=== PATIENT | male | born 1990 | race Caucasian/White ===

== ENCOUNTER 2017-05-26 14:03 | Inpatient (IN) | payer MEDICAID, OTHER ==
[2017-05-26 16:04] LABS: VENOUS BLOOD GAS BASE EXCESS 2.5 mmol/L (0.0-2.0); VENOUS BLOOD GAS PCO2 48 mmHg (40-60); VENOUS BLOOD GAS PO2 24 mm/Hg (30-55); VENOUS BLOOD PH 7.38 (7.32-7.43)
[2017-05-26 16:06] LABS: BASO % 0.2 % (0.0-2.0); MEAN PLATELET VOLUME 8.8 fL (7.2-11.7); RBC 4.89 Mil/uL (4.40-5.90)
[2017-05-26] MEDS ORDERED: Vancomycin 1 GM 1 GM/250 ML BAG IVPB STA (16:06)
[2017-05-26] MEDS ORDERED: Sodium Chloride 0.9% 1,000 ML IV ONE (16:06)
--- NOTE | 2017-05-26 16:06 | C.PDOC ---
History Of Present Illness 27 year old male presents to the ED for evaluation of redness, pain and swelling to his left calf after he got a tattoo around the area 2 weeks ago. Patient states he developed a small opening with purulent drainage around the area 10 days ago and then developed another one 4 days ago. Patient denies fever , chills, direct trauma/injury to the area, and extremity numbness/weakness. Time Seen by Provider: 05/26/17 15:30 Chief Complaint (Nursing): Lower Extremity Problem/Injury History Per: Patient History/Exam Limitations: no limitations Onset/Duration Of Symptoms: Days Current Symptoms Are (Timing): Still Present Additional History Per: Patient Past Medical History Reviewed: Historical Data, Nursing Documentation, Vital Signs Vital Signs: Last Vital Signs Temp 100.9 F H 05/26/17 14:25 Pulse 129 H 05/26/17 14:25 Resp 20 05/26/17 14:25 BP 131/81 05/26/17 14:25 Pulse Ox 99 05/26/17 18:29 - Medical History PMH: No Chronic Diseases Surgical History: No Surg Hx Family History: States: Unknown Family Hx - Social History Hx Alcohol Use: Yes Hx Substance Use: Yes - Immunization History Hx Tetanus Toxoid Vaccination: No Hx Influenza Vaccination: No Hx Pneumococcal Vaccination: No Review Of Systems Constitutional: Negative for: Fever, Chills Skin: Positive for: Other (redness, pain and swelling to left calf s/p tattoo ) Physical Exam - Physical Exam Appears: Non-toxic, No Acute Distress Skin: Warm, Dry, Other (one dime-sized open area with purulent discharge to medial aspect of left calf. one 1cm open area to mid-lateral aspect of left calf ; no purulent drainage. Erythema extending about 3 inches proximal to the knee ) Cardiovascular: Rhythm Regular (tachycardic) Respiratory: No Decreased Breath Sounds, No Wheezing Gastrointestinal/Abdominal: Soft, No Tenderness Extremity: Tenderness, Capillary Refill (less than 2 seconds ), Swelling (left lower extremity swollen wiht pitting edema, soft, no signs of compartment syndrome. ), Other (full ROM in left knee with pain ) Pulses: Left Dorsalis Pedis: Normal, Right Dorsalis Pedis: Normal Neurological/Psych: Oriented x3, Normal Speech, Normal Cognition, Normal Motor, Normal Sensation ED Course And Treatment - Laboratory Results Result Diagrams: 05/26/17 15:58 05/26/17 15:58 O2 Sat by Pulse Oximetry: 99 (on RA) Pulse Ox Interpretation: Normal Medical Decision Making Medical Decision Making: Progress: Bloodwork and Urinalysis ordered and reviewed. pt initially assessed for pre septic workup- lactate normal. Tylenol PO, Vancomycin IVP, and IV Fluids administered. discussed with Dr Sabra Morocho, will admit to his service. Disposition Discussed With Dr.: Jacobo Morocho Doctor Will See Patient In The: Hospital - Disposition Disposition: HOSPITALIZED Disposition Time: 17:29 Condition: STABLE Forms: [employer] (Hungarian) - Clinical Impression Clinical Impression: Cellulitis of left lower limb - PA / LOFTER / Resident Statement MD/DO has reviewed & agrees with the documentation as recorded. - Scribe Statement The provider has reviewed the documentation as recorded by the Scribe (Lesia Morocho) All medical record entries made by the Scribe were at my direction and personally dictated by me. I have reviewed the chart and agree that the record accurately reflects my personal performance of the history, physical exam, medical decision making, and the department course for this patient. I have also personally directed, reviewed, and agree with the discharge instructions and disposition.
[2017-05-26 16:12] LABS: ALB/GLOB RATIO 1.2 (1.0-2.1); ALBUMIN 4.4 g/dL (3.5-5.0); ALT/SGPT 23 U/L (21-72); AST/SGOT 17 U/L (17-59); BLOOD UREA NITROGEN 10 mg/dL (9-20); CALCIUM 9.8 mg/dl (8.6-10.4); GFR AFRICAN-AMERICAN > 60; GFR NON-AFRICAN AMERICAN > 60
[2017-05-26] MEDS ORDERED: Sodium Chloride 0.9% 1,000 ML ONE (16:12)
[2017-05-26 16:27] LABS: URINE BACTERIA RARE (<OCC); URINE BILIRUBIN NEGATIVE (NEGATIVE); URINE BLOOD TRACE (NEGATIVE); URINE CLARITY Hazy (Clear); URINE COLOR Amber (YELLOW); URINE GLUCOSE (UA) 1+ mg/dL (Normal); URINE HYALINE CAST 0-2 /lpf (0-2); URINE LEUKOCYTE ESTERASE NEG Leu/uL (Negative); URINE NITRATE NEGATIVE (NEGATIVE); URINE PROTEIN 1+ mg/dL (NEGATIVE)
[2017-05-26 16:30] LABS: EOS # 0.3 K/uL (0.0-0.7); EOS % 1.2 % (0.0-4.0); HEMOGLOBIN 16.5 g/dL (12.0-18.0); LYMPH # 1.1 K/uL (1.0-4.3); LYMPH % 5.4 % (20.0-40.0); MEAN CELL VOLUME 95.7 fL (80.0-94.0); MEAN CORPUSCULAR HEMOGLOBIN 33.8 pg (27.0-31.0); MEAN CORPUSCULAR HGB CONC 35.3 g/dL (33.0-37.0); MONO # 1.5 K/uL (0.0-0.8); MONO % 7.2 % (0.0-10.0); NEUT # 18.2 K/uL (1.8-7.0); NRBC % 0.4 % (0.0-2.0); PLATELET COUNT 175 K/uL (130-400); WHITE BLOOD COUNT 21.2 K/uL (4.8-10.8)
[2017-05-26] MEDS ORDERED: Vancomycin 1 gm/NS 200 ml 1 GM/200 ML BAG IVPB ONE (16:30)
[2017-05-26] MEDS ORDERED: Piperacill/Tazo 4.5gm in Dex 4.5 GM/100 ML BAG IVPB STA (17:15)
[2017-05-26 17:48] LABS: EOSINOPHIL 1 % (0-4); MONOCYTE 7 % (0-10); NEUTROPHIL 88 % (50-75); REACTIVE LYMPHOCYTES 4 % (0-0); TOTAL CELLS COUNTED 100
[2017-05-26 17:49] LABS: PLATELET ESTIMATE NORMAL (NORMAL)
[2017-05-26 18:01] LABS: LYMPHOCYTE 0 % (20-40)
--- NOTE | 2017-05-26 18:22 | CP.PCM.HP ---
<Martin Cochran - Last Filed: 05/26/17 19:25> Present on Admission - Present on Admission Any Indicators Present on Admission: No Review of Systems - Constitutional Constitutional: Fever. absent: Weakness - EENT Eyes: absent: Change in Vision Nose/Mouth/Throat: absent: Mouth Lesions, Mouth Pain, Odynophagia, Sore Throat - Cardiovascular Cardiovascular: absent: Chest Pain, Diaphoresis, Dyspnea - Gastrointestinal Gastrointestinal: absent: Abdominal Pain, Nausea, Vomiting - Genitourinary Genitourinary: absent: Dysuria Additional comments: dark urine output x1 episode - Musculoskeletal Musculoskeletal: absent: Numbness, Tingling - Integumentary Integumentary: As Per HPI, Skin Ulcer, Sores, Wounds Additional comments: LLE- erythema, purulent lesions - Neurological Neurological: absent: Dizziness, Numbness, Paresthesias, Syncope, Tingling, Weakness Past Patient History - Infectious Disease Hx of Infectious Diseases: None - Past Social History Smoking Status: Heavy Smoker > 10 Cigarettes Daily - PSYCHIATRIC Hx Substance Use: Yes - SURGICAL HISTORY Hx Surgeries: Yes Other/Comment: Brachial plexis left arm - ANESTHESIA Hx Anesthesia: Yes Hx Anesthesia Reactions: No Meds Allergies/Adverse Reactions: Allergies Allergy/AdvReac Type Severity Reaction Status Date / Time No Known Allergies Allergy Verified 05/26/17 14:30 Physical Exam - Constitutional Appears: No Acute Distress - Head Exam Head Exam: ATRAUMATIC, NORMOCEPHALIC - Eye Exam Eye Exam: EOMI, PERRL - ENT Exam ENT Exam: Mucous Membranes Moist - Respiratory Exam Respiratory Exam: Clear to Auscultation Bilateral, NORMAL BREATHING PATTERN. absent: Rales, Rhonchi, Wheezes - Cardiovascular Exam Cardiovascular Exam: REGULAR RHYTHM, +S1, +S2 - GI/Abdominal Exam GI & Abdominal Exam: Normal Bowel Sounds, Soft. absent: Guarding, Tenderness - Extremities Exam Additional comments: LLE is erythematous from knee to ankle. Patient is tender to palpation in this area. He has three open wounds in this area that have purulent drainage. He is able to move the knee and ankle joints through full ROM without difficulty. He is unable to bear weight on this leg secondary to pain. The tattoo is on the medial aspect of the lower leg and reads "NORTHSIDE" written vertically in the direction of knee to ankle. 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 This extremity is smaller and less developed that RUE. He is able to grasp with this hand but function/ utility is not equal to RUE. - Neurological Exam Neurological exam: Alert, CN II-XII Intact, Oriented x3 - Psychiatric Exam Psychiatric exam: Normal Affect, Normal Mood - Skin Skin Exam: Dry, Warm Results - Vital Signs Recent Vital Signs: Last Vital Signs Temp 100.9 F H 05/26/17 14:25 Pulse 129 H 05/26/17 14:25 Resp 20 05/26/17 14:25 BP 131/81 05/26/17 14:25 Pulse Ox 99 05/26/17 17:40 - Labs Result Diagrams: 05/26/17 15:58 05/26/17 15:58 Labs: Laboratory Results - last 24 hr 05/26/17 05/26/17 05/26/17 15:58 15:58 15:58 WBC 21.2 H RBC 4.89 Hgb 16.5 Hct 46.8 MCV 95.7 H MCH 33.8 H MCHC 35.3 RDW 12.0 Plt Count 175 MPV 8.8 Neut % (Auto) 86.0 H Lymph % (Auto) 5.4 L [place]ck[place] % (Auto) 7.2 Eos % (Auto) 1.2 Baso % (Auto) 0.2 Neut # (Auto) 18.2 H Lymph # (Auto) 1.1 Crockett # (Auto) 1.5 H Eos # (Auto) 0.3 Baso # (Auto) 0.0 Neutrophils % (Manual) 88 H Lymphocytes % (Manual) 0 L Reactive Lymphs % 4 H Monocytes % (Manual) 7 Eosinophils % (Manual) 1 Platelet Estimate Normal pO2 VBG pH VBG pCO2 VBG HCO3 VBG Total CO2 VBG O2 Sat (Calc) VBG Base Excess VBG Potassium Glucose Lactate Sodium 136 Potassium 3.8 Chloride 96 L Carbon Dioxide 28 Anion Gap 15 BUN 10 Creatinine 0.8 Est GFR ( Amer) > 60 Est GFR (Non-Af Amer) > 60 Random Glucose 89 Calcium 9.8 Total Bilirubin 1.8 H AST 17 ALT 23 Alkaline Phosphatase 56 C-React Prot High Sens > 15.00 H Total Protein 8.1 Albumin 4.4 Globulin 3.7 Albumin/Globulin Ratio 1.2 Venous Blood Potassium Urine Color Urine Clarity Urine pH Ur Specific [place] Urine Protein Urine Glucose (UA) Urine Ketones Urine Blood Urine Nitrate Urine Bilirubin Urine Urobilinogen Ur Leukocyte Esterase Urine WBC (Auto) Urine RBC (Auto) Urine Bacteria Hyaline Casts 05/26/17 05/26/17 16:00 16:21 WBC RBC Hgb Hct MCV MCH MCHC RDW Plt Count MPV Neut % (Auto) Lymph % (Auto) Crock[place] % (Auto) Eos % (Auto) Baso % (Auto) Neut # (Auto) Lymph # (Auto) [place] # (Auto) Eos # (Auto) Baso # (Auto) Neutrophils % (Manual) Lymphocytes % (Manual) Reactive Lymphs % Monocytes % (Manual) Eosinophils % (Manual) Platelet Estimate pO2 24 L VBG pH 7.38 VBG pCO2 48 VBG HCO3 25.4 VBG Total CO2 29.9 H VBG O2 Sat (Calc) 40.1 VBG Base Excess 2.5 H VBG Potassium 3.8 Glucose 80 Lactate 1.7 Sodium 137.0 Potassium Chloride 102.0 Carbon Dioxide Anion Gap BUN Creatinine Est GFR ( Amer) Est GFR (Non-Af Amer) Random Glucose Calcium Total Bilirubin AST ALT Alkaline Phosphatase C-React Prot High Sens Total Protein Albumin Globulin Albumin/Globulin Ratio Venous Blood Potassium 3.8 Urine Color Georgina Urine Clarity Hazy Urine pH 5.0 Ur Specific [place] 1.019 Urine Protein 1+ H Urine Glucose (UA) 1+ H Urine Ketones Trace Urine Blood Trace H Urine Nitrate Negative Urine Bilirubin Negative Urine Urobilinogen 4.0 Ur Leukocyte Esterase Neg Urine WBC (Auto) 3 Urine RBC (Auto) 3 Urine Bacteria Rare Hyaline Casts 0-2 Assessment & Plan - Assessment and Plan (Free Text) Plan: LLE Cellulitis Started on Vancomycin 1g IV q12hrs Follow up vanc trough 05/28/17 with goal of 15-20 start zosyn 3.375g IV q6hrs Blood cultures collected f/u results follow up wound cx follow up urine cx ID Dr. Longoria consulted- recs appreciated f/u xray L knee and L tib/fib f/u venous dopplers There is some concern for post-strep infectious process. Consideration to be given- f/u ASO titer tylenol 650mg PO q6hrs There was consideration for compartment syndrome. The patient did not exhibit findings consistent to support this consideration on exam. No parasthesia, pain at rest, pain with ankle/knee ROM, loss of sensation or motor abilities. The lesions on his legs appear outside the borders of the tattoo and there is some suspicion of possible injectable drug use. UDS was ordered to evaluate. Leukocytosis with L shift Likely 2/2 to cellulitis f/u CXR, rapid flu, blood cx, urine cx, HIV 1/2, hepatitis panel Consider infectious processes related to recent tattoo Abnormal UA Patient had one bout of dark urine prior to ED today Admits to not properly hydrating himself- he has only had apple juice today UA positive for blood, glucose and protein f/u urine cx f/u ASO f/u complement levels- c3, c4, ch50 Nicotine addiction Nicotine patch 21mg daily Prophylaxis Protonix 40mg PO daily Florastor 250mg PO daily SCD on right foot only. DVT risk score is 1. Case discussed with Dr. Rashawn Cochran D.O. <Jacobo Morocho - Last Filed: 05/26/17 21:04> History of Present Illness - History of Present Illness History of Present Illness: CC: Left leg pain, swelling, and open wounds HPI: A 27 year old male presents to the ED with left leg pain and swelling after getting a tattoo in [place] (written "NORTH SIDE") on the leg 2 weeks ago. The tattoo is on the medial aspect of the LLE between the knee and ankle. He states that he cleaned the tattoo with soap and water, as well as Neosporin. The patient states that he started to notice the leg pain along with 3 open wounds developing about 10-11 days ago. The patient states that he "popped" the wounds himself and discovered purulent drainage coming out. He states that he started to develop fevers and chill about 2 days ago and the pain began to radiate from his left leg to his left knee. The pain is worse with weight bearing and movement and gets better with rest. On ROS, the patient admits to fevers and chills (2 days ago), hematuria, leg pain and leg swelling, and lightheadedness. He denies headaches, vision/hearing changes, sore throat, dizziness, chest pain, palpitations, SOB, cough, abdominal pain, N/V/D/C, rash, and weight changes. PMD: Dr. Welch in [place] Allergies: Denies PMHx: Denies PSHx: Left Arm Brachial Plexus surgery (occurred at ) FamHx: Mother has DM2 SocHx: 12 pack years, drinks EtOH socially, smokes marijuana every other day, last joint was 4 days ago. Home Medications: Advil 2 tab q7h for the past 2 days Results - Vital Signs Recent Vital Signs: Last Vital Signs Temp 100.9 F H 05/26/17 14:25 Pulse 129 H 05/26/17 14:25 Resp 20 05/26/17 14:25 BP 131/81 05/26/17 14:25 Pulse Ox 99 05/26/17 19:03 - Labs Result Diagrams: 05/26/17 15:58 05/26/17 15:58 Labs: Laboratory Results - last 24 hr 05/26/17 05/26/17 05/26/17 15:58 15:58 15:58 WBC 21.2 H RBC 4.89 Hgb 16.5 Hct 46.8 MCV 95.7 H MCH 33.8 H MCHC 35.3 RDW 12.0 Plt Count 175 MPV 8.8 Neut % (Auto) 86.0 H Lymph % (Auto) 5.4 L [place] % (Auto) 7.2 Eos % (Auto) 1.2 Baso % (Auto) 0.2 Neut # (Auto) 18.2 H Lymph # (Auto) 1.1 [place] # (Auto) 1.5 H Eos # (Auto) 0.3 Baso # (Auto) 0.0 Neutrophils % (Manual) 88 H Lymphocytes % (Manual) 0 L Reactive Lymphs % 4 H Monocytes % (Manual) 7 Eosinophils % (Manual) 1 Platelet Estimate Normal ESR 31 H pO2 VBG pH VBG pCO2 VBG HCO3 VBG Total CO2 VBG O2 Sat (Calc) VBG Base Excess VBG Potassium Glucose Lactate Sodium 136 Potassium 3.8 Chloride 96 L Carbon Dioxide 28 Anion Gap 15 BUN 10 Creatinine 0.8 Est GFR ( Amer) > 60 Est GFR (Non-Af Amer) > 60 Random Glucose 89 Calcium 9.8 Total Bilirubin 1.8 H AST 17 ALT 23 Alkaline Phosphatase 56 C-React Prot High Sens Total Protein 8.1 Albumin 4.4 Globulin 3.7 Albumin/Globulin Ratio 1.2 Venous Blood Potassium Urine Color Urine Clarity Urine pH Ur Specific [place] Urine Protein Urine Glucose (UA) Urine Ketones Urine Blood Urine Nitrate Urine Bilirubin Urine Urobilinogen Ur Leukocyte Esterase Urine WBC (Auto) Urine RBC (Auto) Urine Bacteria Hyaline Casts 05/26/17 05/26/17 05/26/17 15:58 16:00 16:21 WBC RBC Hgb Hct MCV MCH MCHC RDW Plt Count MPV Neut % (Auto) Lymph % (Auto) [place] % (Auto) Eos % (Auto) Baso % (Auto) Neut # (Auto) Lymph # (Auto) [place] # (Auto) Eos # (Auto) Baso # (Auto) Neutrophils % (Manual) Lymphocytes % (Manual) Reactive Lymphs % Monocytes % (Manual) Eosinophils % (Manual) Platelet Estimate ESR pO2 24 L VBG pH 7.38 VBG pCO2 48 VBG HCO3 25.4 VBG Total CO2 29.9 H VBG O2 Sat (Calc) 40.1 VBG Base Excess 2.5 H VBG Potassium 3.8 Glucose 80 Lactate 1.7 Sodium 137.0 Potassium Chloride 102.0 Carbon Dioxide Anion Gap BUN Creatinine Est GFR ( Amer) Est GFR (Non-Af Amer) Random Glucose Calcium Total Bilirubin AST ALT Alkaline Phosphatase C-React Prot High Sens > 15.00 H Total Protein Albumin Globulin Albumin/Globulin Ratio Venous Blood Potassium 3.8 Urine Color Georgina Urine Clarity Hazy Urine pH 5.0 Ur Specific [place] 1.019 Urine Protein 1+ H Urine Glucose (UA) 1+ H Urine Ketones Trace Urine Blood Trace H Urine Nitrate Negative Urine Bilirubin Negative Urine Urobilinogen 4.0 Ur Leukocyte Esterase Neg Urine WBC (Auto) 3 Urine RBC (Auto) 3 Urine Bacteria Rare Hyaline Casts 0-2 Attending/Attestation - Attestation I have personally seen and examined this patient.: Yes I have fully participated in the care of the patient.: Yes I have reviewed all pertinent clinical information: Yes Notes (Text): 05/26/17 21:02 Patient was seen shortly after resident in ER HW Bed #6. History, Exam, assessment and plan were gone over with the resident. Please note that the Left was slightly edematous when compared to the Right. There was full range of motion of the Left Knee with flexion and extension and there was NO pain with these movements in the Left Knee. Jacobo Morocho D.O.
[2017-05-26] MEDS: Saccharomyces Boulardi 250 mg Cap PO SCH (20:00)
[2017-05-26] MEDS: Pantoprazole 40 mg EC Tab PO SCH (20:30)
[2017-05-26] MEDS ORDERED: Pantoprazole 40 mg EC Tab PO ONE (20:37)
[2017-05-26 21:56] LABS: COMPLEMENT C4 45.2 mg/dL (14.0-44.0)
[2017-05-26] MEDS ORDERED: Iodixanol 320 MG/ML 100 ML BOTTLE IV ONE (22:14)
[2017-05-26 22:20] LABS: HEPATITIS B SURFACE AG Negative (NEGATIVE)
[2017-05-26 22:26] LABS: HEPATITIS A IGM NEGATIVE (NEGATIVE); HEPATITIS B CORE AB NEGATIVE (NEGATIVE)
[2017-05-26 22:37] LABS: HEPATITIS C ANTIBODY NEGATIVE (NEGATIVE)
[2017-05-26 22:38] LABS: BARBITURATES, UR NEGATIVE (NEGATIVE); BENZODIAZEPINES, UR NEGATIVE (NEGATIVE); OPIATES, UR NEGATIVE (NEGATIVE); PHENCYCLIDINE, UR NEGATIVE (NEGATIVE)
--- NOTE | 2017-05-26 23:44 | CT ---
EXAM: CT Left Lower Extremity With Intravenous Contrast, Tibia and Fibula EXAM DATE/TIME: 05/26/2017 9:58 PM CLINICAL HISTORY: 27 years old, male; Signs and symptoms; Cellulitis and edema; Location not specified; Lower leg; Left; Additional info: Abscess, cellulitis TECHNIQUE: Axial computed tomography images of the left tibia and fibula with intravenous contrast. All CT scans at this facility use one or more dose reduction techniques, viz.: automated exposure control; ma/kV adjustment per patient size (including targeted exams where dose is matched to indication; i.e. head); or iterative reconstruction technique. Coronal and sagittal reformatted images were created and reviewed. CONTRAST: 100 mL of visipaque 320 administered intravenously. COMPARISON: There are no prior studies for comparison. FINDINGS: Bones/joints: Distal femur is intact. The tibia and fibula are intact. Alignment at the knee and ankle is anatomic. There is no effusion in the suprapatellar bursa. There is no effusion in the ankle joint. Visualized portions of the hindfoot and midfoot is unremarkable. Soft tissues: There is diffuse superficial soft edema in the right calf. There is no deep soft tissue swelling. There is no focal abscess. Vasculature: Arterial structures enhance in the expected fashion. There are multiple prominent vessels in the superficial soft tissues of the left calf. IMPRESSION: Left calf cellulitis, no abscess
[2017-05-27] MEDS ORDERED: Piperacillin/Tazobact 3.375 GM in Sodium Chloride 100 ML IVPB SCH (00:01)
[2017-05-27] MEDS: Piperacill/Tazo 3.375gm in Dex 3.375 GM/50 ML BAG IVPB SCH ×3 (00:37→12:17)
[2017-05-27] MEDS: Vancomycin 1 gm/NS 200 ml 1 GM/200 ML BAG IVPB SCH ×2 (06:50→19:35)
--- NOTE | 2017-05-27 08:40 | RAD ---
Chest x-ray two views History: Leukocytosis and fever. Comparison: None available. Findings: Mild venous congestion. Right hilar prominence. Top normal heart size. Impression: Mild venous congestion. Right hilar prominence.
--- NOTE | 2017-05-27 10:06 | CP.PCM.CON ---
History of Present Illness - History of Present Illness History of Present Illness: 27 year old male presents to the ED for evaluation of redness, pain and swelling to his left calf after he got a tattoo around the area 2 weeks ago. Patient states he developed a small opening with purulent drainage around the area 10 days ago and then developed another one 4 days ago. Patient denies fever , chills, direct trauma/injury to the area, and extremity numbness/weakness. AWAIT CULTURES CHECK VANCO LEVELS CONSIDER IMAGING, MAY NEED I AND D Review of Systems - Constitutional Constitutional: As Per HPI - EENT Eyes: absent: As Per HPI, Blind Spots, Blurred Vision, Change in Vision, Decreased Night Vision, Diplopia, Discharge, Dry Eye, Exophthalmos, Floaters, Irritation, Itchy Eyes, Loss of Peripheral Vision, Pain, Photophobia, Requires Corrective Lenses, Sees Flashes, Spots in Vision, Tunnel Vision, Other Visual Disturbances, Loss of Vision, Other Ears: absent: As Per HPI, Decreased Hearing, Ear Discharge, Ear Pain, Tinnitus, Abnormal Hearing, Disequilibrium, Dizziness, Other Nose/Mouth/Throat: absent: As Per HPI, Epistaxis, Nasal Congestion, Nasal Discharge, Nasal Obstruction, Nasal Trauma, Nose Pain, Post Nasal Drip, Sinus Pain, Sinus Pressure, Bleeding Gums, Change in Voice, Dental Pain, Dry Mouth, Dysphagia, Halitosis, Hoarsness, Lip Swelling, Mouth Lesions, Mouth Pain, Odynophagia, Sore Throat, Throat Swelling, Tongue Swelling, Facial Pain, Neck Pain, Neck Mass, Other - Cardiovascular Cardiovascular: absent: As Per HPI, Acrocyanosis, Chest Pain, Chest Pain at Rest , Chest Pain with Activity, Claudication, Diaphoresis, Dyspnea, Dyspnea on Exertion, Edema, Irregular Heart Rhythm, Pain Radiating to Arm/Neck/Jaw, Leg Edema, Leg Ulcers, Lightheadedness, Orthopnea, Palpitations, Paroxysmal Nocturnal Dyspnea, Pedal Edema, Radiating Pain, Rapid Heart Rate, Slow Heart Rate, Syncope, Other - Respiratory Respiratory: absent: As Per HPI, Cough, Dyspnea, Hemoptysis, Dyspnea on Exertion , Wheezing, Snoring, Stridor, Pain on Inspiration, Chest Congestion, Excessive Mucous Production, Change in Mucous Color, Pain with Coughing, Other - Gastrointestinal Gastrointestinal: absent: As Per HPI, Abdominal Pain, Belching, Bloating, Change in Bowel Habits, Change in Stool Character, Coffee Ground Emesis, Constipation, Cramping, Diarrhea, Dyspepsia, Dysphagia, Early Satiety, Excessive Flatus, Fecal Incontinence, Heartburn, Hematemesis, Hematochezia, Loose Stools, Melena, Nausea, Odynophagia, Temesmus, Vomiting, Other - Genitourinary Genitourinary: absent: As Per HPI, Change in Urinary Stream, Difficulty Urinating, Dysuria, Flank Pain, Hematuria, Pyuria, Nocturia, Urinary Incontinence, Urinary Frequency, Urinary Hesitance, Urinary Urgency, Voiding Freq/Small Amts, Freq UTI, Hx Renal/Bladder Calculi, Hx /Renal Surgery, Bladder Distension, Other - Musculoskeletal Musculoskeletal: As Per HPI - Integumentary Integumentary: As Per HPI - Neurological Neurological: absent: As Per HPI, Abnormal Gait, Abnormal Hearing, Abnormal Movements, Abnormal Speech, Behavioral Changes, Burning Sensations, Confusion, Convulsions, Disequilibrium, Dizziness, Numbness, Focal Weakness, Frequent Falls , Headaches, Lack of Coordination, Loss of Vision, Memory Loss, Paresthesias, Radicular Pain, Restless Legs, Sensory Deficit, Syncope, Tingling, Tremor, Vertigo, Weakness, Other Visual Disturbances, Other - Psychiatric Psychiatric: absent: As Per HPI, Abnormal Sleep Pattern, Anhedonia, Anxiety, Auditory Hallucinations, Behavioral Changes, Change in Appetite, Change in Libido, Confusion, Depression, Difficulty Concentrating, Hallucinations, Homicidal Ideation, Hopelessness, Irritability, Memory Loss, Mood Swings, Panic Attacks, Paranoia, Suicidal Ideation, Visual Hallucinations, Tactile Hallucinations, Other - Endocrine Endocrine: absent: As Per HPI, Change in Body Appearance, Change in Libido, Cold Intolorance, Deepening of Voice, Excessive Sweating, Fatigue, Flushing, Heat Intolorance, Increase in Ring/Shoe/Hat Size, Palpitations, Polydipsia, Polyphagia, Polyuria, Other - Hematologic/Lymphatic Hematologic: absent: As Per HPI, Easy Bleeding, Easy Bruising, Lymphadenopathy, Other Past Patient History - Infectious Disease Hx of Infectious Diseases: None - Past Social History Smoking Status: Heavy Smoker > 10 Cigarettes Daily - PSYCHIATRIC Hx Substance Use: Yes - SURGICAL HISTORY Hx Surgeries: Yes Other/Comment: Brachial plexis left arm - ANESTHESIA Hx Anesthesia: Yes Hx Anesthesia Reactions: No Meds Allergies/Adverse Reactions: Allergies Allergy/AdvReac Type Severity Reaction Status Date / Time No Known Allergies Allergy Verified 05/26/17 14:30 - Medications Medications: Current Medications Acetaminophen (Tylenol 325mg Tab) 650 mg PO Q6H PRN PRN Reason: Pain, Mild (1-3) Stop: 05/27/17 22:00 Vancomycin/Sodium Chloride (Vancomycin 1 Gm/Ns 200 Ml) 1 gm in 200 mls @ 166.6 mls/hr IVPB Q12H [facility] Stop: 06/01/17 06:01 Last Admin: 05/27/17 06:50 Dose: 166.6 mls/hr Piperacillin Sod/Tazobactam Sod (Zosyn 3.375 Gm Iv Premix) 3.375 gm in 50 mls @ 100 mls/hr IVPB Q6H [facility] Last Admin: 05/27/17 06:27 Dose: 100 mls/hr Nicotine (Nicoderm Cq) 1 patch TD DAILY [facility] Pantoprazole Sodium (Protonix Ec Tab) 40 mg PO DAILY [facility] Last Admin: 05/26/17 20:30 Dose: 40 mg Saccharomyces Boulardii (Florastor) 250 mg PO BID [facility] Last Admin: 05/26/17 20:00 Dose: Not Given Physical Exam - Constitutional Appears: Non-toxic, Chronically Ill - Head Exam Head Exam: NORMOCEPHALIC - Eye Exam Eye Exam: PERRL - ENT Exam ENT Exam: Mucous Membranes Dry - Neck Exam Neck exam: Negative for: Lymphadenopathy - Respiratory Exam Respiratory Exam: Decreased Breath Sounds - Cardiovascular Exam Cardiovascular Exam: REGULAR RHYTHM - GI/Abdominal Exam GI & Abdominal Exam: Diminished Bowel Sounds - Rectal Exam Rectal Exam: Deferred - Exam Exam: NORMAL INSPECTION - Extremities Exam Extremities exam: Positive for: calf tenderness, tenderness, pedal pulses present. Negative for: pedal edema - Back Exam Back exam: absent: CVA tenderness (L), CVA tenderness (R) - Neurological Exam Neurological exam: Alert, CN II-XII Intact, Oriented x3, Reflexes Normal - Psychiatric Exam Psychiatric exam: Normal Mood - Skin Skin Exam: Dry Results - Vital Signs Recent Vital Signs: Last Vital Signs Temp 99.5 F 05/27/17 07:25 Pulse 98 H 05/27/17 07:25 Resp 16 05/27/17 07:25 BP 126/77 05/27/17 07:25 Pulse Ox 99 02/26/18 07:25 - Labs Result Diagrams: 05/26/17 15:58 05/27/17 11:08 Labs: Laboratory Results - last 24 hr 05/26/17 05/26/17 05/26/17 15:58 15:58 15:58 WBC 21.2 H RBC 4.89 Hgb 16.5 Hct 46.8 MCV 95.7 H MCH 33.8 H MCHC 35.3 RDW 12.0 Plt Count 175 MPV 8.8 Neut % (Auto) 86.0 H Lymph % (Auto) 5.4 L [place] % (Auto) 7.2 Eos % (Auto) 1.2 Baso % (Auto) 0.2 Neut # (Auto) 18.2 H Lymph # (Auto) 1.1 [place] # (Auto) 1.5 H Eos # (Auto) 0.3 Baso # (Auto) 0.0 Neutrophils % (Manual) 88 H Lymphocytes % (Manual) 0 L Reactive Lymphs % 4 H Monocytes % (Manual) 7 Eosinophils % (Manual) 1 Platelet Estimate Normal ESR 31 H pO2 VBG pH VBG pCO2 VBG HCO3 VBG Total CO2 VBG O2 Sat (Calc) VBG Base Excess VBG Potassium Glucose Lactate Sodium 136 Potassium 3.8 Chloride 96 L Carbon Dioxide 28 Anion Gap 15 BUN 10 Creatinine 0.8 Est GFR ( Amer) > 60 Est GFR (Non-Af Amer) > 60 Random Glucose 89 Calcium 9.8 Total Bilirubin 1.8 H AST 17 ALT 23 Alkaline Phosphatase 56 C-React Prot High Sens Total Protein 8.1 Albumin 4.4 Globulin 3.7 Albumin/Globulin Ratio 1.2 Venous Blood Potassium Urine Color Urine Clarity Urine pH Ur Specific [place] Urine Protein Urine Glucose (UA) Urine Ketones Urine Blood Urine Nitrate Urine Bilirubin Urine Urobilinogen Ur Leukocyte Esterase Urine WBC (Auto) Urine RBC (Auto) Urine Bacteria Hyaline Casts Urine Opiates Screen Urine Methadone Screen Ur Barbiturates Screen Ur Phencyclidine Scrn Ur Amphetamines Screen U Benzodiazepines Scrn U Oth Cocaine Metabols U Cannabinoids Screen Complement C3 Complement C4 Hepatitis A IgM Ab Hep Bs Antigen Hep B Core IgM Ab Hepatitis C Antibody HIV 1&2 Antibody Screen Influenza Typ A,B (EIA) Anti-Staphylolysin O 05/26/17 05/26/17 05/26/17 15:58 16:00 16:21 WBC RBC Hgb Hct MCV MCH MCHC RDW Plt Count MPV Neut % (Auto) Lymph % (Auto) [place] % (Auto) Eos % (Auto) Baso % (Auto) Neut # (Auto) Lymph # (Auto) [place] # (Auto) Eos # (Auto) Baso # (Auto) Neutrophils % (Manual) Lymphocytes % (Manual) Reactive Lymphs % Monocytes % (Manual) Eosinophils % (Manual) Platelet Estimate ESR pO2 24 L VBG pH 7.38 VBG pCO2 48 VBG HCO3 25.4 VBG Total CO2 29.9 H VBG O2 Sat (Calc) 40.1 VBG Base Excess 2.5 H VBG Potassium 3.8 Glucose 80 Lactate 1.7 Sodium 137.0 Potassium Chloride 102.0 Carbon Dioxide Anion Gap BUN Creatinine Est GFR ( Amer) Est GFR (Non-Af Amer) Random Glucose Calcium Total Bilirubin AST ALT Alkaline Phosphatase C-React Prot High Sens > 15.00 H Total Protein Albumin Globulin Albumin/Globulin Ratio Venous Blood Potassium 3.8 Urine Color [place] Urine Clarity Hazy Urine pH 5.0 Ur Specific [place] 1.019 Urine Protein 1+ H Urine Glucose (UA) 1+ H Urine Ketones Trace Urine Blood Trace H Urine Nitrate Negative Urine Bilirubin Negative Urine Urobilinogen 4.0 Ur Leukocyte Esterase Neg Urine WBC (Auto) 3 Urine RBC (Auto) 3 Urine Bacteria Rare Hyaline Casts 0-2 Urine Opiates Screen Urine Methadone Screen Ur Barbiturates Screen Ur Phencyclidine Scrn Ur Amphetamines Screen U Benzodiazepines Scrn U Oth Cocaine Metabols U Cannabinoids Screen Complement C3 Complement C4 Hepatitis A IgM Ab Hep Bs Antigen Hep B Core IgM Ab Hepatitis C Antibody HIV 1&2 Antibody Screen Influenza Typ A,B (EIA) Anti-Staphylolysin O 05/26/17 05/26/17 05/26/17 20:35 21:20 21:20 WBC RBC Hgb Hct MCV MCH MCHC RDW Plt Count MPV Neut % (Auto) Lymph % (Auto) [place] % (Auto) Eos % (Auto) Baso % (Auto) Neut # (Auto) Lymph # (Auto) [place] # (Auto) Eos # (Auto) Baso # (Auto) Neutrophils % (Manual) Lymphocytes % (Manual) Reactive Lymphs % Monocytes % (Manual) Eosinophils % (Manual) Platelet Estimate ESR pO2 VBG pH VBG pCO2 VBG HCO3 VBG Total CO2 VBG O2 Sat (Calc) VBG Base Excess VBG Potassium Glucose Lactate Sodium Potassium Chloride Carbon Dioxide Anion Gap BUN Creatinine Est GFR ( Amer) Est GFR (Non-Af Amer) Random Glucose Calcium Total Bilirubin AST ALT Alkaline Phosphatase C-React Prot High Sens Total Protein Albumin Globulin Albumin/Globulin Ratio Venous Blood Potassium Urine Color Urine Clarity Urine pH Ur Specific [place] Urine Protein Urine Glucose (UA) Urine Ketones Urine Blood Urine Nitrate Urine Bilirubin Urine Urobilinogen Ur Leukocyte Esterase Urine WBC (Auto) Urine RBC (Auto) Urine Bacteria Hyaline Casts Urine Opiates Screen Urine Methadone Screen Ur Barbiturates Screen Ur Phencyclidine Scrn Ur Amphetamines Screen U Benzodiazepines Scrn U Oth Cocaine Metabols U Cannabinoids Screen Complement C3 136.0 Complement C4 45.2 H Hepatitis A IgM Ab Hep Bs Antigen Hep B Core IgM Ab Hepatitis C Antibody HIV 1&2 Antibody Screen Influenza Typ A,B (EIA) Negative for flu a/b Anti-Staphylolysin O Negative 05/26/17 05/26/17 05/26/17 21:20 21:20 22:18 WBC RBC Hgb Hct MCV MCH MCHC RDW Plt Count MPV Neut % (Auto) Lymph % (Auto) [place] % (Auto) Eos % (Auto) Baso % (Auto) Neut # (Auto) Lymph # (Auto) [place] # (Auto) Eos # (Auto) Baso # (Auto) Neutrophils % (Manual) Lymphocytes % (Manual) Reactive Lymphs % Monocytes % (Manual) Eosinophils % (Manual) Platelet Estimate ESR pO2 VBG pH VBG pCO2 VBG HCO3 VBG Total CO2 VBG O2 Sat (Calc) VBG Base Excess VBG Potassium Glucose Lactate Sodium Potassium Chloride Carbon Dioxide Anion Gap BUN Creatinine Est GFR ( Amer) Est GFR (Non-Af Amer) Random Glucose Calcium Total Bilirubin AST ALT Alkaline Phosphatase C-React Prot High Sens Total Protein Albumin Globulin Albumin/Globulin Ratio Venous Blood Potassium Urine Color Urine Clarity Urine pH Ur Specific [place] Urine Protein Urine Glucose (UA) Urine Ketones Urine Blood Urine Nitrate Urine Bilirubin Urine Urobilinogen Ur Leukocyte Esterase Urine WBC (Auto) Urine RBC (Auto) Urine Bacteria Hyaline Casts Urine Opiates Screen Negative Urine Methadone Screen Negative Ur Barbiturates Screen Negative Ur Phencyclidine Scrn Negative Ur Amphetamines Screen Negative U Benzodiazepines Scrn Negative U Oth Cocaine Metabols Negative U Cannabinoids Screen Positive H Complement C3 Complement C4 Hepatitis A IgM Ab Negative Hep Bs Antigen Negative Hep B Core IgM Ab Negative Hepatitis C Antibody Negative HIV 1&2 Antibody Screen Negative Influenza Typ A,B (EIA) Anti-Staphylolysin O Assessment & Plan - Assessment and Plan (Free Text) Assessment: SEVERE LEFT LEG SWELLING/ CELLULITIS CONSIDER IMAGING MAY NEED I AND D AWAIT CULTURES CONSIDER HIV AND HEP SCREEN
[2017-05-27] MEDS: Pantoprazole 40 mg EC Tab PO SCH (10:07)
[2017-05-27] MEDS: Saccharomyces Boulardi 250 mg Cap PO SCH ×2 (10:07→19:19)
--- NOTE | 2017-05-27 10:18 | RAD ---
Left knee radiographs Left tibia fibula radiographs Comparison: None available Indication: Cellulitis Findings: Soft tissue swelling/cellulitis. No evidence of radiopaque foreign body. No acute displaced fracture. No dislocation. No significant joint effusion. Impression: Soft tissue swelling/cellulitis.
[2017-05-27 11:45] LABS: ALB/GLOB RATIO 1.1 (1.0-2.1); ALBUMIN 3.6 g/dL (3.5-5.0); ALT/SGPT 32 U/L (21-72); AST/SGOT 24 U/L (17-59); BLOOD UREA NITROGEN 7 mg/dL (9-20); CALCIUM 8.7 mg/dl (8.6-10.4); GFR AFRICAN-AMERICAN > 60; GFR NON-AFRICAN AMERICAN > 60; MAGNESIUM 1.9 mg/dL (1.6-2.3)
--- NOTE | 2017-05-27 12:02 | VASCLAB ---
PROCEDURE: Left Lower Extremity Venous Duplex Exam. HISTORY: Cellulitis, and swelling PRIORS: None. TECHNIQUE: Left common femoral, femoral, popliteal and posterior tibial, peroneal and great saphenous veins were evaluated. Flow was assessed with color Doppler, compressibility, assessment of phasic flow and augmentation response. Report prepared by KWAKU Portillo FINDINGS: LEFT: 1. Common Femoral Vein: 1.1. Compressibility - Fully compressible: Thrombus - None : Flow - Phasic: Augmentation -Normal: Reflux - None. 2. Femoral Vein: 2.1. Compressibility - Fully compressible: Thrombus - None: Flow - Phasic: Augmentation -Normal: Reflux - None. 3. Popliteal Vein: 3.1. Compressibility - Fully compressible: Thrombus - None: Flow - Phasic: Augmentation -Normal: Reflux - None. 4. Posterior Tibial Vein: 4.1. Compressibility - Fully compressible: Thrombus - None: Flow - Phasic: Augmentation -Normal: Reflux - None. 5. Peroneal Vein: 5.1. Compressibility - Fully compressible: Thrombus - None: Flow - Phasic: Augmentation -Normal: Reflux - None. 6. Great Saphenous Vein: 6.1. Compressibility - Fully compressible: Thrombus - None: Flow - Phasic: Augmentation - Normal: Reflux - None. OTHER FINDINGS: IMPRESSION: No evidence of deep or superficial vein thrombosis of the left lower extremity with excellent venous flow. Normal valve function noted of the left side. Normal venous flow noted in the right common femoral vein.
--- NOTE | 2017-05-27 13:27 | CP.PCM.PN ---
<Trupti Brody - Last Filed: 05/27/17 15:41> Subjective - Date & Time of Evaluation Date of Evaluation: 05/27/17 Time of Evaluation: 09:00 - Subjective Subjective: Medicine Note for Hospitalist Service- Dr. Diez Patient was seen and examined in the ED. Patient reports he feels okay, no changes since admission. Patient reports he is unable to ambulate but the pain has improved since admission. Denied fever, chills, headache, chest pain, SOB, abdominal pain, n/v/d/c, or urinary symptoms. Objective - Vital Signs/Intake and Output Vital Signs (last 24 hours): Temp Pulse Resp BP Pulse Ox 99.5 F 98 H 16 126/77 99 05/27/17 07:25 05/27/17 07:25 05/27/17 07:25 05/27/17 07:25 05/27/17 07:25 - Medications Medications: Current Medications Acetaminophen (Tylenol 325mg Tab) 650 mg PO Q6H PRN PRN Reason: Pain, Mild (1-3) Stop: 05/27/17 22:00 Last Admin: 05/27/17 10:07 Dose: 650 mg Heparin Sodium (Porcine) (Heparin) 5,000 units SC Q12 [facility] Vancomycin/Sodium Chloride (Vancomycin 1 Gm/Ns 200 Ml) 1 gm in 200 mls @ 166.6 mls/hr IVPB Q12H [facility] Stop: 06/01/17 06:01 Last Admin: 05/27/17 06:50 Dose: 166.6 mls/hr Piperacillin Sod/Tazobactam Sod (Zosyn 3.375 Gm Iv Premix) 3.375 gm in 50 mls @ 100 mls/hr IVPB Q6H [facility] Last Admin: 05/27/17 12:17 Dose: 100 mls/hr Nicotine (Nicoderm Cq) 1 patch TD DAILY [facility] Last Admin: 05/27/17 10:08 Dose: 1 patch Pantoprazole Sodium (Protonix Ec Tab) 40 mg PO DAILY [facility] Last Admin: 05/27/17 10:07 Dose: 40 mg Saccharomyces Boulardii (Florastor) 250 mg PO BID [facility] Last Admin: 05/27/17 10:07 Dose: 250 mg - Labs Labs: 05/26/17 15:58 02/26/18 11:08 - Additional Findings Additional findings: - Constitutional Appears: No Acute Distress - Head Exam Head Exam: ATRAUMATIC, NORMOCEPHALIC - Eye Exam Eye Exam: EOMI, PERRL - ENT Exam ENT Exam: Mucous Membranes Moist - Respiratory Exam Respiratory Exam: Clear to Auscultation Bilateral, NORMAL BREATHING PATTERN. absent: Rales, Rhonchi, Wheezes - Cardiovascular Exam Cardiovascular Exam: REGULAR RHYTHM, +S1, +S2 - GI/Abdominal Exam GI & Abdominal Exam: Normal Bowel Sounds, Soft. absent: Guarding, Tenderness - Extremities Exam Additional comments: LLE is erythematous from knee to ankle. Patient is tender to palpation in this area. He has three open wounds in this area that have purulent drainage. He is able to move the knee and ankle joints through full ROM without difficulty. He is unable to bear weight on this leg secondary to pain. The tattoo is on the medial aspect of the lower leg and reads "NORTHSIDE" written vertically in the direction of knee to ankle. 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 This extremity is smaller and less developed that RUE. He is able to grasp with this hand but function/ utility is not equal to RUE. - Neurological Exam Neurological exam: Alert, CN II-XII Intact, Oriented x3 - Psychiatric Exam Psychiatric exam: Normal Affect, Normal Mood - Skin Skin Exam: Dry, Warm Assessment and Plan - Assessment and Plan (Free Text) Plan: LLE Cellulitis ID Dr. Longoria consulted- recs appreciated Blood cultures collected f/u results follow up wound cx Imaging: Xray L knee: Soft tissue swelling/cellulitis. L tib/fib: Soft tissue swelling/cellulitis. Lower Extremity CT: Left calf cellulitis, no abscess Venous dopplers - negative DVT Meds: Started on Vancomycin 1g IV q12hrs, Follow up vanc trough 05/28/17 with goal of 15-20 Start zosyn 3.375g IV q6hrs tylenol 650mg PO q6hrs PRN Leukocytosis Likely 2/2 to cellulitis CXR: Mild venous congestion. Right hilar prominence. Rapid flu- negative HIV 1/2, hepatitis panel - negative Abnormal UA Patient had one bout of dark urine prior to ED today Admits to not properly hydrating himself- he has only had apple juice today UA positive for blood, glucose and protein ASO - negative f/u urine cx f/u complement levels- c3, c4, ch50 Nicotine addiction Nicotine patch 21mg daily Prophylaxis Protonix 40mg PO daily Florastor 250mg PO daily SCD on right foot only. DVT risk score is 1 DW Trupti Espinoza DO, PGY-1 <Josephine Diez V - Last Filed: 05/27/17 19:40> Objective - Vital Signs/Intake and Output Vital Signs (last 24 hours): Temp Pulse Resp BP Pulse Ox 99.1 F 94 H 16 122/82 99 05/27/17 17:01 05/27/17 17:01 05/27/17 17:01 05/27/17 17:01 05/27/17 17:01 - Medications Medications: Current Medications Acetaminophen (Tylenol 325mg Tab) 650 mg PO Q6H PRN PRN Reason: Pain, Mild (1-3) Stop: 05/27/17 22:00 Last Admin: 05/27/17 10:07 Dose: 650 mg Vancomycin/Sodium Chloride (Vancomycin 1 Gm/Ns 200 Ml) 1 gm in 200 mls @ 166.6 mls/hr IVPB Q12H [facility] Stop: 06/01/17 06:01 Last Admin: 05/27/17 06:50 Dose: 166.6 mls/hr Piperacillin Sod/Tazobactam Sod (Zosyn 4.5 Gm Iv Premix) 4.5 gm in 100 mls @ 100 mls/hr IVPB Q8H [facility] Nicotine (Nicoderm Cq) 1 patch TD DAILY [facility] Last Admin: 05/27/17 10:08 Dose: 1 patch Pantoprazole Sodium (Protonix Ec Tab) 40 mg PO DAILY [facility] Last Admin: 05/27/17 10:07 Dose: 40 mg Saccharomyces Boulardii (Florastor) 250 mg PO BID [facility] Last Admin: 05/27/17 19:19 Dose: 250 mg - Labs Labs: 05/27/17 13:58 05/27/17 11:08 Attending/Attestation - Attestation I have personally seen and examined this patient.: Yes I have fully participated in the care of the patient.: Yes I have reviewed all pertinent clinical information, including history, physical exam and plan: Yes Notes (Text): patient seen, examined and case discussed with medical biller coder. Patient seen in [facility] Bed 3 awaiting bed from the floor. Patient reports he had a recent tattoo completed last week on his left lower extremity. Patient went to [facility]-established [facility] for clean needles. He reports they shaved him prior to his tattoo and took about 3 hours for them to complete "North side" on his leg. Patient has completed CT lower extremity supporting soft tissue edema, cellulitis, no abscess noted further findings per reports. Area is demarcated over th left lower extremity. White count is improving while on IV abx. Assessment/plan 1) LLE Cellulitis * ID Dr. Longoria consulted- recs appreciated * Blood cultures collected f/u results * Follow up wound cx * Imaging: * Xray L knee: Soft tissue swelling/cellulitis. * L tib/fib: Soft tissue swelling/cellulitis. * Lower Extremity CT: Left calf cellulitis, no abscess * Venous dopplers - negative DVT Meds: * Started on Vancomycin 1g IV q12hrs, Follow up vanc trough 05/28/17 with goal of 15-20 * Start zosyn 3.375g IV q6hrs * tylenol 650mg PO q6hrs PRN * HIV 1/2, hepatitis panel - negative 2) Leukocytosis * Likely 2/2 to cellulitis * Improving * CXR: Mild venous congestion. Right hilar prominence. Rapid flu- negative * HIV 1/2, hepatitis panel - negative 3) Abnormal UA * Patient had one bout of dark urine prior to ED today * Admits to not properly hydrating himself- he has only had apple juice today * UA positive for blood, glucose and protein * ASO - negative * f/u urine cx * f/u complement levels- c3, c4, ch50 4) Nicotine addiction Nicotine patch 21mg daily 5) Prophylaxis * Protonix 40mg PO daily * Florastor 250mg PO daily * SCD on right foot only. DVT risk score is 1 * Will start gentle IV hydration * PT eval
[2017-05-27 14:01] LABS: BASO % 0.2 % (0.0-2.0); EOS # 0.3 K/uL (0.0-0.7); EOS % 1.9 % (0.0-4.0); LYMPH % 6.5 % (20.0-40.0); MEAN CELL VOLUME 95.5 fL (80.0-94.0); MEAN CORPUSCULAR HEMOGLOBIN 33.5 pg (27.0-31.0); MEAN CORPUSCULAR HGB CONC 35.1 g/dL (33.0-37.0); MEAN PLATELET VOLUME 9.4 fL (7.2-11.7); MONO # 0.8 K/uL (0.0-0.8); MONO % 4.7 % (0.0-10.0); NEUT # 13.9 K/uL (1.8-7.0); NEUT % 86.7 % (50.0-75.0); PLATELET COUNT 171 K/uL (130-400); RBC 4.24 Mil/uL (4.40-5.90); RED CELL DISTRIBUTION WIDTH 11.9 % (11.5-14.5); WHITE BLOOD COUNT 16.1 K/uL (4.8-10.8)
[2017-05-27 14:03] LABS: HEMOGLOBIN 14.2 g/dL (12.0-18.0)
[2017-05-27 14:42] LABS: EOSINOPHIL 1 % (0-4); LYMPHOCYTE 6 % (20-40); MONOCYTE 5 % (0-10); NEUTROPHIL 87 % (50-75); PLATELET ESTIMATE NORMAL (NORMAL); REACTIVE LYMPHOCYTES 1 % (0-0); TOTAL CELLS COUNTED 100
[2017-05-27] MEDS ORDERED: Piperacill/Tazo 4.5gm in Dex 4.5 GM/100 ML BAG IVPB SCH (18:00)
[2017-05-27] MEDS: Sodium Chloride 0.9% 1,000 ML IV SCH (19:44)
[2017-05-27] MEDS: Piperacill/Tazo 4.5gm in Dex 4.5 GM/100 ML BAG IVPB SCH (21:50)
[2017-05-28] MEDS: Piperacill/Tazo 4.5gm in Dex 4.5 GM/100 ML BAG IVPB SCH (05:43)
[2017-05-28] MEDS: Vancomycin 1 gm/NS 200 ml 1 GM/200 ML BAG IVPB SCH ×2 (07:01→17:55)
[2017-05-28 08:10] LABS: BASO % 0.2 % (0.0-2.0); EOS # 0.4 K/uL (0.0-0.7); EOS % 3.4 % (0.0-4.0); HEMOGLOBIN 13.9 g/dL (12.0-18.0); LYMPH # 1.8 K/uL (1.0-4.3); LYMPH % 15.8 % (20.0-40.0); MEAN CELL VOLUME 94.6 fL (80.0-94.0); MEAN CORPUSCULAR HEMOGLOBIN 33.6 pg (27.0-31.0); MEAN CORPUSCULAR HGB CONC 35.5 g/dL (33.0-37.0); MEAN PLATELET VOLUME 8.8 fL (7.2-11.7); MONO # 0.7 K/uL (0.0-0.8); MONO % 5.7 % (0.0-10.0); NEUT # 8.5 K/uL (1.8-7.0); NEUT % 74.9 % (50.0-75.0); RBC 4.15 Mil/uL (4.40-5.90); WHITE BLOOD COUNT 11.4 K/uL (4.8-10.8)
[2017-05-28 08:23] LABS: ALB/GLOB RATIO 1.1 (1.0-2.1); ALBUMIN 3.6 g/dL (3.5-5.0); ALT/SGPT 33 U/L (21-72); AST/SGOT 27 U/L (17-59); BLOOD UREA NITROGEN 8 mg/dL (9-20); CALCIUM 9.1 mg/dl (8.6-10.4); GFR AFRICAN-AMERICAN > 60; GFR NON-AFRICAN AMERICAN > 60; MAGNESIUM 2.2 mg/dL (1.6-2.3)
--- NOTE | 2017-05-28 08:42 | CP.PCM.PN ---
<Trupti Brody - Last Filed: 05/28/17 13:57> Subjective - Date & Time of Evaluation Date of Evaluation: 05/28/17 Time of Evaluation: 07:00 - Subjective Subjective: Medicine Note for Hospitalist Service- Dr. Diez Patient was seen and examined in the ED. Patient reports he has been ambulating , but admits to leg pain. Denied fever, chills, headache, chest pain, SOB, abdominal pain, n/v/d/c, or urinary symptoms. Objective - Vital Signs/Intake and Output Vital Signs (last 24 hours): Temp Pulse Resp BP Pulse Ox 98.0 F 80 20 122/78 97 05/28/17 07:00 05/28/17 07:00 05/28/17 07:00 05/28/17 07:00 05/28/17 07:00 Intake and Output: 05/28/17 05/28/17 06:59 18:59 Intake Total 1200 Balance 1200 - Medications Medications: Current Medications Vancomycin/Sodium Chloride (Vancomycin 1 Gm/Ns 200 Ml) 1 gm in 200 mls @ 166.6 mls/hr IVPB Q12H [facility] Stop: 06/01/17 06:01 Last Admin: 05/28/17 07:01 Dose: 166.6 mls/hr Sodium Chloride (Sodium Chloride 0.9%) 1,000 mls @ 75 mls/hr IV .[id number] [facility] Last Admin: 05/27/17 19:44 Dose: 75 mls/hr Piperacillin Sod/Tazobactam Sod (Zosyn 4.5 Gm Iv Premix) 4.5 gm in 100 mls @ 200 mls/hr IVPB Q8H [facility] Last Admin: 05/28/17 05:43 Dose: 200 mls/hr Nicotine (Nicoderm Cq) 1 patch TD DAILY [facility] Last Admin: 05/27/17 10:08 Dose: 1 patch Pantoprazole Sodium (Protonix Ec Tab) 40 mg PO DAILY [facility] Last Admin: 05/27/17 10:07 Dose: 40 mg Saccharomyces Boulardii (Florastor) 250 mg PO BID [facility] Last Admin: 05/27/17 19:19 Dose: 250 mg - Labs Labs: 05/28/17 07:45 05/28/17 07:45 - Additional Findings Additional findings: - Constitutional Appears: No Acute Distress - Head Exam Head Exam: ATRAUMATIC, NORMOCEPHALIC - Eye Exam Eye Exam: EOMI, PERRL - ENT Exam ENT Exam: Mucous Membranes Moist - Respiratory Exam Respiratory Exam: Clear to Auscultation Bilateral, NORMAL BREATHING PATTERN. absent: Rales, Rhonchi, Wheezes - Cardiovascular Exam Cardiovascular Exam: REGULAR RHYTHM, +S1, +S2 - GI/Abdominal Exam GI & Abdominal Exam: Normal Bowel Sounds, Soft. absent: Guarding, Tenderness - Extremities Exam Additional comments: LLE is erythematous from knee to ankle- greatly reduced since admission. Patient is tender to palpation in this area. He has three open wounds in this area, one on the medial aspect is having purulent drainage. He is able to move the knee and ankle joints through full ROM without difficulty. He is unable to bear weight on this leg secondary to pain. The tattoo is on the medial aspect of the lower leg and reads "NORTHSIDE" written vertically in the direction of knee to ankle. 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 This extremity is smaller and less developed that RUE. He is able to grasp with this hand but function/ utility is not equal to RUE. - Neurological Exam Neurological exam: Alert, CN II-XII Intact, Oriented x3 - Psychiatric Exam Psychiatric exam: Normal Affect, Normal Mood - Skin Skin Exam: Dry, Warm Assessment and Plan - Assessment and Plan (Free Text) Plan: LLE Cellulitis ID Dr. Longoria consulted- recs appreciated Ortho Consulted for concerns of septic joint - will go to OR tomorrow - NPO past midnight Blood cultures- negativ Wound Culture - MRSA + - will DC with PO clinda Imaging: Xray L knee: Soft tissue swelling/cellulitis. L tib/fib: Soft tissue swelling/cellulitis. Lower Extremity CT: Left calf cellulitis, no abscess Venous dopplers - negative DVT Meds: Started on Vancomycin 1g IV q12hrs, Follow up vanc trough 05/28/17 - @ 12.9 - will continue Start zosyn 4.5g IV q8hrs tylenol 650mg PO q6hrs PRN Leukocytosis Likely 2/2 to cellulitis CXR: Mild venous congestion. Right hilar prominence. Rapid flu- negative HIV 1/2, hepatitis panel - negative Abnormal UA Patient had one bout of dark urine prior to ED Admits to not properly hydrating himself- he has only had apple juice today UA positive for blood, glucose and protein ASO - negative Urine cx- no growth to date Complement levels- c3 - normal , c4 - elevated at 45.2 , ch50 Nicotine addiction Nicotine patch 21mg daily Prophylaxis Protonix 40mg PO daily Florastor 250mg PO daily SCD on right foot only. DVT risk score is 1 PT Eval: can ambulate with Crutch. DW Trupti Espinoza DO, PGY-1 <Josephine Diez V - Last Filed: 05/28/17 16:26> Objective - Vital Signs/Intake and Output Vital Signs (last 24 hours): Temp Pulse Resp BP Pulse Ox 98.0 F 80 20 122/78 97 05/28/17 07:00 05/28/17 11:30 05/28/17 07:00 05/28/17 07:00 05/28/17 11:30 Intake and Output: 05/28/17 05/28/17 06:59 18:59 Intake Total 1200 Balance 1200 - Medications Medications: Current Medications Sodium Chloride (Sodium Chloride 0.9%) 1,000 mls @ 75 mls/hr IV .[id number] [facility] Last Admin: 05/28/17 14:50 Dose: 75 mls/hr Piperacillin Sod/Tazobactam (Sod 3.375 gm/ Sodium Chloride) 100 mls @ 200 mls/ hr IVPB Q8H [facility] Vancomycin/Sodium Chloride (Vancomycin 1 Gm/Ns 200 Ml) 1 gm in 200 mls @ 125 mls/hr IVPB Q12H [facility] Stop: 06/02/17 14:01 Ketorolac Tromethamine (Toradol) 30 mg IVP Q6 PRN PRN Reason: Pain, moderate (4-7) Last Admin: 05/28/17 13:04 Dose: 30 mg Nicotine (Nicoderm Cq) 1 patch TD DAILY [facility] Last Admin: 05/28/17 11:00 Dose: 1 patch Pantoprazole Sodium (Protonix Ec Tab) 40 mg PO DAILY [facility] Last Admin: 05/28/17 11:00 Dose: 40 mg Saccharomyces Boulardii (Florastor) 250 mg PO BID [facility] Last Admin: 05/28/17 11:00 Dose: 250 mg - Labs Labs: 05/28/17 07:45 05/28/17 07:45 Attending/Attestation - Attestation I have personally seen and examined this patient.: Yes I have fully participated in the care of the patient.: Yes I have reviewed all pertinent clinical information, including history, physical exam and plan: Yes Notes (Text): Patient seen, examined and case discussed with medical radiation dosimetrist on rounds. Patient seen during rounds this morning. Patient has pus draining at the side of his left knee. lateral to the patella. Erythema has improved and limited to the first three letters of his tatto. Orthopedic consult given drainage given location of the draining. Discussed with orthopedic PA, patient was seen and evaluated this afternoon for possible OR tomorrow orthopedic procedure. Will continue IV Abx. Assessment/plan 1) LLE Cellulitis * ID Dr. Longoria consulted- recs appreciated * Blood cultures (05/26/17): no growth after 24hours X2 * Wound cx (05/26/17): MRSA * On contact isolation * Urine culture: no growth * Imaging: * Xray L knee: Soft tissue swelling/cellulitis. * L tib/fib: Soft tissue swelling/cellulitis. * Lower Extremity CT: Left calf cellulitis, no abscess * Venous dopplers - negative DVT Meds: * Started on Vancomycin 1g IV q12hrs, Follow up vanc trough 05/28/17 with goal of 15-20 * Start zosyn 3.375g IV q6hrs * tylenol 650mg PO q6hrs PRN * HIV 1/2, hepatitis panel - negative 2) Leukocytosis * Likely 2/2 to cellulitis * Improving * CXR: Mild venous congestion. Right hilar prominence. Rapid flu- negative * HIV 1/2, hepatitis panel - negative 3) Abnormal UA * Patient had one bout of dark urine prior to ED today * Admits to not properly hydrating himself- he has only had apple juiceon admission * UA positive for blood, glucose and protein * Urine culture: no growth * ASO - negative * f/u complement levels- c3, c4, ch50 4) Nicotine addiction Nicotine patch 21mg daily 5) Prophylaxis * Protonix 40mg PO daily * Florastor 250mg PO daily * SCD on right foot only. DVT risk score is 1 * NS 75cc/hr * PT eval: Home Changed to inpatient: for possible orthopedic intervention in the morning given drainage seen during rounds today and discussion with orthpedic PA.
[2017-05-28] MEDS: Sodium Chloride 0.9% 1,000 ML IV SCH ×3 (09:41→23:07)
--- NOTE | 2017-05-28 10:47 | CP.PCM.PN ---
Subjective - Date & Time of Evaluation Date of Evaluation: 05/28/17 Time of Evaluation: 09:00 - Subjective Subjective: culture + MRSA slow progress Objective - Vital Signs/Intake and Output Vital Signs (last 24 hours): Temp Pulse Resp BP Pulse Ox 98.0 F 80 20 122/78 97 05/28/17 07:00 05/28/17 07:00 05/28/17 07:00 05/28/17 07:00 05/28/17 07:00 Intake and Output: 05/28/17 05/28/17 06:59 18:59 Intake Total 1200 Balance 1200 - Medications Medications: Current Medications Vancomycin/Sodium Chloride (Vancomycin 1 Gm/Ns 200 Ml) 1 gm in 200 mls @ 166.6 mls/hr IVPB Q12H [facility] Stop: 06/01/17 06:01 Last Admin: 05/28/17 07:01 Dose: 166.6 mls/hr Sodium Chloride (Sodium Chloride 0.9%) 1,000 mls @ 75 mls/hr IV .[id number] [facility] Last Admin: 05/28/17 09:41 Dose: Not Given Piperacillin Sod/Tazobactam Sod (Zosyn 4.5 Gm Iv Premix) 4.5 gm in 100 mls @ 200 mls/hr IVPB Q8H [facility] Last Admin: 05/28/17 05:43 Dose: 200 mls/hr Naproxen (Anaprox Ds) 550 mg PO BID [facility] Nicotine (Nicoderm Cq) 1 patch TD DAILY [facility] Last Admin: 05/27/17 10:08 Dose: 1 patch Pantoprazole Sodium (Protonix Ec Tab) 40 mg PO DAILY [facility] Last Admin: 05/27/17 10:07 Dose: 40 mg Saccharomyces Boulardii (Florastor) 250 mg PO BID [facility] Last Admin: 05/27/17 19:19 Dose: 250 mg - Labs Labs: 05/28/17 07:45 05/28/17 07:45 - Constitutional Appears: Non-toxic, Chronically Ill - Head Exam Head Exam: NORMOCEPHALIC - Eye Exam Eye Exam: PERRL - ENT Exam ENT Exam: Mucous Membranes Dry - Neck Exam Neck Exam: absent: Lymphadenopathy - Respiratory Exam Respiratory Exam: Decreased Breath Sounds - Cardiovascular Exam Cardiovascular Exam: REGULAR RHYTHM - GI/Abdominal Exam GI & Abdominal Exam: Distended - Rectal Exam Rectal Exam: Deferred Assessment and Plan - Assessment and Plan (Free Text) Plan: cont iv rx for now
[2017-05-28] MEDS: Pantoprazole 40 mg EC Tab PO SCH (11:00)
[2017-05-28] MEDS: Saccharomyces Boulardi 250 mg Cap PO SCH ×2 (11:00→17:57)
--- NOTE | 2017-05-28 13:36 | CP.PCM.CON ---
History of Present Illness - History of Present Illness History of Present Illness: Orthopedic consultation Dr. Pineda 27M complains of left leg pain and swelling x 6 days. He says he recently got a tattoo on his left leg, and that he noticed his pants were rubbing on his leg at work, and by the time he got home he had blisters on his leg. The pain and swelling continued to increase until he finally came to ER. He says it started draining also. THe pain and swelling in the leg is improving, and it continues to drain. Denies CP/SOB/dizziness/n/v/numbness/tingling. Denies history of abscess. Review of Systems - Review of Systems All systems: reviewed and no additional remarkable complaints except - Cardiovascular Cardiovascular: As Per HPI - Respiratory Respiratory: As Per HPI - Musculoskeletal Musculoskeletal: As Per HPI - Integumentary Integumentary: As Per HPI - Neurological Neurological: As Per HPI Past Patient History - Infectious Disease Hx of Infectious Diseases: None - Past Medical History & Family History Past Medical History?: Yes Past Family History: Reviewed and not pertinent - Past Social History Smoking Status: Heavy Smoker > 10 Cigarettes Daily - CARDIAC Hx Cardiac Disorders: No - PULMONARY Hx Respiratory Disorders: No - NEUROLOGICAL Hx Neurological Disorder: No - HEENT Hx HEENT Problems: No - RENAL Hx Chronic Kidney Disease: No - ENDOCRINE/METABOLIC Hx Endocrine Disorders: No - HEMATOLOGICAL/ONCOLOGICAL Hx Blood Disorders: No - INTEGUMENTARY Hx Dermatological Problems: No - MUSCULOSKELETAL/RHEUMATOLOGICAL Hx Falls: No - PSYCHIATRIC Hx Substance Use: Yes (Marijuana every other day) - SURGICAL HISTORY Hx Surgeries: Yes Other/Comment: Brachial plexis left arm - ANESTHESIA Hx Anesthesia: Yes Hx Anesthesia Reactions: No Meds Allergies/Adverse Reactions: Allergies Allergy/AdvReac Type Severity Reaction Status Date / Time No Known Allergies Allergy Verified 05/26/17 14:30 - Medications Medications: Current Medications Sodium Chloride (Sodium Chloride 0.9%) 1,000 mls @ 75 mls/hr IV .[id number] [facility] Last Admin: 05/28/17 09:41 Dose: Not Given Clindamycin Phosphate (Cleocin In Normal Saline) 600 mg in 50 mls @ 100 mls/hr IVPB Q8H [facility] Ketorolac Tromethamine (Toradol) 30 mg IVP Q6 PRN PRN Reason: Pain, moderate (4-7) Last Admin: 05/28/17 13:04 Dose: 30 mg Naproxen (Anaprox Ds) 550 mg PO BID [facility] Nicotine (Nicoderm Cq) 1 patch TD DAILY [facility] Last Admin: 05/28/17 11:00 Dose: 1 patch Pantoprazole Sodium (Protonix Ec Tab) 40 mg PO DAILY [facility] Last Admin: 05/28/17 11:00 Dose: 40 mg Saccharomyces Boulardii (Florastor) 250 mg PO BID [facility] Last Admin: 05/28/17 11:00 Dose: 250 mg Physical Exam - Constitutional Appears: In Acute Distress - Head Exam Head Exam: ATRAUMATIC - Neck Exam Neck exam: Positive for: Full Rom, Normal Inspection - Respiratory Exam Respiratory Exam: NORMAL BREATHING PATTERN - Expanded Lower Extremities Exam Left Knee exam: full ROM (no pain with knee ROM, no joint effusion appreciated, no erythema to knee) Lower Leg Exam: erythema (8mm wound to medial aspect of proximal lower leg, able to express moderate amount of pus from the wound, tracking down medial aspect of leg, +ROM ankle/toes, no tenderness to knee, extensor mechanism intact , +ROM anlke/toes, sensation intact, calf swollen, lower leg swollen) - Neurological Exam Neurological exam: Alert, Oriented x3 - Psychiatric Exam Psychiatric exam: Normal Affect, Normal Mood - Skin Skin Exam: Warm Additional comments: draining blood and pus from wound erythematous to entire medial aspect of lower leg no erythema to knee Results - Vital Signs Recent Vital Signs: Last Vital Signs Temp 98.0 F 05/28/17 07:00 Pulse 80 05/28/17 11:30 Resp 20 05/28/17 07:00 BP 122/78 05/28/17 07:00 Pulse Ox 97 05/28/17 11:30 - Labs Result Diagrams: 05/28/17 07:45 05/28/17 07:45 Labs: Laboratory Results - last 24 hr 05/27/17 05/28/17 05/28/17 13:58 07:45 07:45 WBC 16.1 H 11.4 H RBC 4.24 L 4.15 L Hgb 14.2 D 13.9 Hct 40.5 39.3 MCV 95.5 H 94.6 H MCH 33.5 H 33.6 H MCHC 35.1 35.5 RDW 11.9 12.0 Plt Count 171 177 MPV 9.4 8.8 Neut % (Auto) 86.7 H 74.9 Lymph % (Auto) 6.5 L 15.8 L [place] % (Auto) 4.7 5.7 Eos % (Auto) 1.9 3.4 Baso % (Auto) 0.2 0.2 Neut # (Auto) 13.9 H 8.5 H Lymph # (Auto) 1.0 1.8 [place] # (Auto) 0.8 0.7 Eos # (Auto) 0.3 0.4 Baso # (Auto) 0.0 0.0 Neutrophils % (Manual) 87 H Lymphocytes % (Manual) 6 L Reactive Lymphs % 1 H Monocytes % (Manual) 5 Eosinophils % (Manual) 1 Platelet Estimate Normal RBC Morphology Normal Sodium Potassium Chloride Carbon Dioxide Anion Gap BUN Creatinine Est GFR ( Amer) Est GFR (Non-Af Amer) Random Glucose Hemoglobin A1c Calcium Phosphorus Magnesium Total Bilirubin AST ALT Alkaline Phosphatase Total Protein Albumin Globulin Albumin/Globulin Ratio Vancomycin Trough < 5.0 L 05/28/17 05/28/17 07:45 07:45 WBC RBC Hgb Hct MCV MCH MCHC RDW Plt Count MPV Neut % (Auto) Lymph % (Auto) [place] % (Auto) Eos % (Auto) Baso % (Auto) Neut # (Auto) Lymph # (Auto) [place] # (Auto) Eos # (Auto) Baso # (Auto) Neutrophils % (Manual) Lymphocytes % (Manual) Reactive Lymphs % Monocytes % (Manual) Eosinophils % (Manual) Platelet Estimate RBC Morphology Sodium 142 Potassium 3.6 Chloride 104 Carbon Dioxide 26 Anion Gap 16 BUN 8 L Creatinine 0.7 L Est GFR ( Amer) > 60 Est GFR (Non-Af Amer) > 60 Random Glucose 86 Hemoglobin A1c 4.3 Calcium 9.1 Phosphorus 3.4 Magnesium 2.2 Total Bilirubin 1.0 AST 27 ALT 33 Alkaline Phosphatase 55 Total Protein 6.8 Albumin 3.6 Globulin 3.2 Albumin/Globulin Ratio 1.1 Vancomycin Trough - Impressions Impression: Patient Name / ID : TAYLOR COURTNEY / [id number] Exam Date : 05/26/2017 22:24:52 ( Approved ) Study Comment : Sex / Age : M / 27Y Creator : ELLIE JUDGE Dictator : Audio Video Tech : Registration Manager : ALFIE ELLIE Approver2 : Report Date : 05/26/2017 23:43:00 My Comment : [facility] Division of Radiology [address] [address] Tel. no. Patient Name: SHERWIN VAZQUEZ Pt. Address: [address] [place] [address] Rec #: [id number] [place] [address]: Jessica VICKERS, Juan Luis Salgado Pt Order Location: [facility] : 1990 Male Age: 27 Order #: [id number] Reason for exam: abscess, cellulitis CT Scan EXT LOWER WITH CONTRAST LEFT Exam Date: 05/26/17 This imaging exam was performed at [facility] EXAM: CT Left Lower Extremity With Intravenous Contrast, Tibia and Fibula EXAM DATE/TIME: 05/26/2017 9:58 PM CLINICAL HISTORY: 27 years old, male; Signs and symptoms; Cellulitis and edema; Location not specified; Lower leg; Left; Additional info: Abscess, cellulitis TECHNIQUE: Axial computed tomography images of the left tibia and fibula with intravenous contrast. All CT scans at this facility use one or more dose reduction techniques, viz.: automated exposure control; ma/kV adjustment per patient size (including targeted exams where dose is matched to indication; i.e. head); or iterative reconstruction technique. Coronal and sagittal reformatted images were created and reviewed. CONTRAST: 100 mL of visipaque 320 administered intravenously. COMPARISON: There are no prior studies for comparison. FINDINGS: Bones/joints: Distal femur is intact. The tibia and fibula are intact. Alignment at the knee and ankle is anatomic. There is no effusion in the suprapatellar bursa. There is no effusion in the ankle joint. Visualized portions of the hindfoot and midfoot is unremarkable. Soft tissues: There is diffuse superficial soft edema in the right calf. There is no deep soft tissue swelling. There is no focal abscess. Vasculature: Arterial structures enhance in the expected fashion. There are multiple prominent vessels in the superficial soft tissues of the left calf. IMPRESSION: Left calf cellulitis, no abscess Dictated By: Ellie Judge MD, MD Dictated Date/Time: 05/26/172342 Signed By: Ellie Judge MD Date Signed: [id number] Transcribed By: [email or web address] Transcribe Date/Time : 05/26/172342 LISY/LITA Assessment & Plan (1) Abscess of left leg Assessment and Plan: spontaneously draining expressed moderate amount of pus warm compresses dressing change with betadyne soaked wick MRI clinically does not communicate with joint at this time, zero pain with knee ROM and NO joint effusion at this time +MRSA on vanco monitor will reeval in am NPO p MN in case there is loculation to abscess or develops joint involvement advised smoking cessation d/w Dr. Pineda, agrees with above Status: Acute (2) Cellulitis of left lower limb Status: Acute
[2017-05-28] MEDS ORDERED: Vancomycin 1 gm/NS 200 ml 1 GM/200 ML BAG IVPB SCH (14:00)
[2017-05-28] MEDS ORDERED: Clindamycin 600mg/50ml NS 600 MG/50 ML BAG IVPB SCH (14:00)
[2017-05-28] MEDS ORDERED: Naproxen 550 mg Tab PO SCH (14:00)
[2017-05-28] MEDS ORDERED: Piperacillin/Tazobact 3.375 GM in Sodium Chloride 100 ML IVPB SCH (14:30)
[2017-05-28] MEDS ORDERED: Gadodiamide 287 mg/ml 20 ml IV ONE (17:05)
[2017-05-28 18:02] LABS: INR 1.1; PROTHROMBIN TIME 12.7 SECONDS (9.7-12.2)
[2017-05-28] MEDS: Piperacillin/Tazobact 3.375 GM in Sodium Chloride 100 ML IVPB SCH (20:01)
[2017-05-29] MEDS: Piperacillin/Tazobact 3.375 GM in Sodium Chloride 100 ML IVPB SCH ×3 (02:48→18:56)
[2017-05-29] MEDS: Vancomycin 1 gm/NS 200 ml 1 GM/200 ML BAG IVPB SCH ×2 (05:49→17:59)
[2017-05-29 08:18] LABS: BASO # 0.1 K/uL (0.0-0.2); BASO % 0.5 % (0.0-2.0); EOS # 0.4 K/uL (0.0-0.7); HEMOGLOBIN 13.6 g/dL (12.0-18.0); LYMPH # 1.7 K/uL (1.0-4.3); LYMPH % 15.2 % (20.0-40.0); MEAN CELL VOLUME 94.6 fL (80.0-94.0); MEAN CORPUSCULAR HEMOGLOBIN 33.8 pg (27.0-31.0); MEAN CORPUSCULAR HGB CONC 35.8 g/dL (33.0-37.0); MEAN PLATELET VOLUME 8.5 fL (7.2-11.7); MONO # 0.8 K/uL (0.0-0.8); MONO % 7.5 % (0.0-10.0); NEUT # 7.9 K/uL (1.8-7.0); NEUT % 72.8 % (50.0-75.0); NRBC % 0.1 % (0.0-2.0); RBC 4.03 Mil/uL (4.40-5.90); RED CELL DISTRIBUTION WIDTH 11.8 % (11.5-14.5); WHITE BLOOD COUNT 10.9 K/uL (4.8-10.8)
[2017-05-29 08:21] LABS: INR 1.2; PROTHROMBIN TIME 13.4 SECONDS (9.7-12.2)
--- NOTE | 2017-05-29 08:25 | CP.PCM.PN ---
Subjective - Date & Time of Evaluation Date of Evaluation: 05/29/17 Time of Evaluation: 08:22 - Subjective Subjective: Patient states pain in leg improving, but still swollen and painful. Objective - Vital Signs/Intake and Output Vital Signs (last 24 hours): Temp Pulse Resp BP Pulse Ox 97.7 F 86 18 115/71 98 05/29/17 07:10 05/29/17 07:10 05/29/17 07:10 05/29/17 07:10 05/29/17 07:10 Intake and Output: 05/29/17 05/29/17 06:59 18:59 Intake Total 600 Balance 600 - Medications Medications: Current Medications Sodium Chloride (Sodium Chloride 0.9%) 1,000 mls @ 75 mls/hr IV .[id number] [facility] Last Admin: 05/28/17 23:07 Dose: Not Given Piperacillin Sod/Tazobactam (Sod 3.375 gm/ Sodium Chloride) 100 mls @ 200 mls/ hr IVPB Q8H [facility] Last Admin: 05/29/17 02:48 Dose: 200 mls/hr Vancomycin/Sodium Chloride (Vancomycin 1 Gm/Ns 200 Ml) 1 gm in 200 mls @ 125 mls/hr IVPB Q12H [facility] Stop: 06/02/17 17:01 Last Admin: 05/29/17 05:49 Dose: 125 mls/hr Ketorolac Tromethamine (Toradol) 30 mg IVP Q6 PRN PRN Reason: Pain, moderate (4-7) Last Admin: 05/29/17 02:55 Dose: 30 mg Nicotine (Nicoderm Cq) 1 patch TD DAILY [facility] Last Admin: 05/28/17 11:00 Dose: 1 patch Pantoprazole Sodium (Protonix Ec Tab) 40 mg PO DAILY [facility] Last Admin: 05/28/17 11:00 Dose: 40 mg Saccharomyces Boulardii (Florastor) 250 mg PO BID [facility] Last Admin: 05/28/17 17:57 Dose: 250 mg - Labs Labs: 05/29/17 08:05 05/28/17 07:45 PT 12.7 SECONDS (9.7-12.2) H 05/28/17 17:50 INR 1.1 05/28/17 17:50 APTT 35 SECONDS (21-34) H 05/28/17 17:50 - Extremities Exam Additional comments: swelling continues to left leg, +ROM ankle/toes, sensation intact, calf swollen (doppler neg for DVT) +dp/pt pulses, sang drainage left leg wound Assessment and Plan (1) Abscess of left leg Assessment & Plan: MRI confirms continued abscess left leg NPO for I&D today d/w Dr. Pineda, agrees with above Status: Acute (2) Cellulitis of left lower limb Status: Acute
[2017-05-29 08:35] LABS: ALBUMIN 3.4 g/dL (3.5-5.0); ALT/SGPT 32 U/L (21-72); AST/SGOT 27 U/L (17-59); BLOOD UREA NITROGEN 4 mg/dL (9-20); CALCIUM 8.9 mg/dl (8.6-10.4); GFR AFRICAN-AMERICAN > 60; GFR NON-AFRICAN AMERICAN > 60
--- NOTE | 2017-05-29 09:21 | RAD ---
HISTORY: preadmission COMPARISON: 05/26/2017. FINDINGS: LUNGS: The lungs are well inflated and clear. PLEURA: No significant pleural effusion identified, no pneumothorax apparent. CARDIOVASCULAR: Normal. OSSEOUS STRUCTURES: No significant abnormalities. VISUALIZED UPPER ABDOMEN: Normal. OTHER FINDINGS: None. IMPRESSION: No active pulmonary disease.
[2017-05-29] MEDS: Bacitracin 150,000 UNIT in Sodium Chloride 0.9% Irrig 3,000 ML IR SCH (10:00)
[2017-05-29] MEDS: Pantoprazole 40 mg EC Tab PO SCH (10:06)
[2017-05-29] MEDS: Saccharomyces Boulardi 250 mg Cap PO SCH ×2 (10:06→18:54)
[2017-05-29] MEDS ORDERED: Midazolam 2 MG/2 ML VIAL ONE ×2 (11:01→11:50)
[2017-05-29] MEDS ORDERED: Propofol 10 mg/ml Inj (20 ML) ONE ×2 (11:01→11:50)
[2017-05-29] MEDS ORDERED: Lactated Ringer's 1,000 ML IV ONE ×3 (11:55)
[2017-05-29] MEDS ORDERED: HYDROmorphone 0.5 mg/0.5 ml ISec IVP PRN (13:06)
[2017-05-29] MEDS ORDERED: Bacitracin 500 Units/gm Oint Foilpak UD ONE (13:12)
--- NOTE | 2017-05-29 13:28 | PCM.SURG1 ---
Surgeon's Initial Post Op Note - Surgeon's Notes Surgeon: Jayesh Pineda MD In[employer]: Mak RANKIN Type of Anesthesia: General Endo Anesthesia Administered By: Dr. Miller Pre-Operative Diagnosis: Left leg abscess and cellulitis Operative Findings: same Post-Operative Diagnosis: same Operation Performed: incision and drainage. irrigation and debridement. culture and biopsy left leg abscess Specimen/Specimens Removed: c&S x 8. tissue for pathology. stat gram stain and WBC per HPF Estimated Blood Loss: EBL {In ML}: 20 Blood Products Given: N/A Drains Used: No Drains Post-Op Condition: Fair Date of Surgery/Procedure: 05/29/17 Time of Surgery/Procedure: 13:28
[2017-05-29] MEDS: Sodium Chloride 0.9% 1,000 ML IV SCH ×2 (14:40→17:52)
[2017-05-29] MEDS: Oxycodone/Acetaminophen 5/325 mg Tab PO PRN ×2 (14:50→21:54)
--- NOTE | 2017-05-29 15:17 | CP.PCM.PN ---
<Mary Brodyrina - Last Filed: 05/29/17 15:25> Subjective - Date & Time of Evaluation Date of Evaluation: 05/29/17 Time of Evaluation: 09:00 - Subjective Subjective: Medicine Note for Hospitalist Service- Dr. Diez Patient was seen and examined at bedside. Patient reports minimal pain. NPO for I&D with Ortho. Denied fever, chills, headache, chest pain, SOB, abdominal pain , n/v/d/c, or urinary symptoms. Objective - Vital Signs/Intake and Output Vital Signs (last 24 hours): Temp Pulse Resp BP Pulse Ox 97.5 F L 75 18 132/84 98 05/29/17 14:55 05/29/17 14:55 05/29/17 14:55 05/29/17 14:55 05/29/17 14:55 Intake and Output: 05/29/17 05/29/17 06:59 18:59 Intake Total 600 Balance 600 - Medications Medications: Current Medications Docusate Sodium (Colace) 100 mg PO BID [facility] Hydromorphone HCl (Dilaudid) 0.5 mg IVP Q4H PRN PRN Reason: Pain, severe (8-10) Piperacillin Sod/Tazobactam (Sod 3.375 gm/ Sodium Chloride) 100 mls @ 200 mls/ hr IVPB Q8H [facility] Last Admin: 05/29/17 10:07 Dose: 200 mls/hr Vancomycin/Sodium Chloride (Vancomycin 1 Gm/Ns 200 Ml) 1 gm in 200 mls @ 125 mls/hr IVPB Q12H [facility] Stop: 06/02/17 17:01 Last Admin: 05/29/17 05:49 Dose: 125 mls/hr Sodium Chloride (Sodium Chloride 0.9%) 1,000 mls @ 100 mls/hr IV .Q10H [facility] Nicotine (Nicoderm Cq) 1 patch TD DAILY [facility] Last Admin: 05/29/17 10:06 Dose: 1 patch Oxycodone/Acetaminophen (Percocet 5/325 Mg Tab) 1 tab PO Q4 PRN PRN Reason: Pain, moderate (4-7) Stop: 06/01/17 13:29 Last Admin: 05/29/17 14:50 Dose: 1 tab Pantoprazole Sodium (Protonix Ec Tab) 40 mg PO DAILY [facility] Last Admin: 05/29/17 10:06 Dose: 40 mg Saccharomyces Denisdii (Florastor) 250 mg PO BID [facility] Last Admin: 05/29/17 10:06 Dose: 250 mg - Labs Labs: 05/29/17 08:05 05/29/17 08:05 PT 13.4 SECONDS (9.7-12.2) H 05/29/17 08:05 INR 1.2 05/29/17 08:05 APTT 33 SECONDS (21-34) 05/29/17 08:05 - Additional Findings Additional findings: - Constitutional Appears: No Acute Distress - Head Exam Head Exam: ATRAUMATIC, NORMOCEPHALIC - Eye Exam Eye Exam: EOMI, PERRL - ENT Exam ENT Exam: Mucous Membranes Moist - Respiratory Exam Respiratory Exam: Clear to Auscultation Bilateral, NORMAL BREATHING PATTERN. absent: Rales, Rhonchi, Wheezes - Cardiovascular Exam Cardiovascular Exam: REGULAR RHYTHM, +S1, +S2 - GI/Abdominal Exam GI & Abdominal Exam: Normal Bowel Sounds, Soft. absent: Guarding, Tenderness - Extremities Exam Additional comments: Erythema is greatly reduced. He has three open wounds in this area, one on the medial aspect was drainig purulent drainage. He is able to move the knee and ankle joints through full ROM without difficulty. He is unable to bear full weight on this leg secondary to pain, ambulating with crutch. The tattoo is on the medial aspect of the lower leg and reads "NORTHSIDE" written vertically in the direction of knee to ankle. 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 This extremity is smaller and less developed that RUE. He is able to grasp with this hand but function/ utility is not equal to RUE. - Neurological Exam Neurological exam: Alert, CN II-XII Intact, Oriented x3 - Psychiatric Exam Psychiatric exam: Normal Affect, Normal Mood - Skin Skin Exam: Dry, Warm Assessment and Plan - Assessment and Plan (Free Text) Plan: LLE Cellulitis ID Dr. Longoria consulted- recs appreciated Ortho Consulted for concerns of septic joint - s/p I&D Blood cultures- negativ Wound Culture 05/26- MRSA + Pending repeat Wound cultures 05/29 Imaging: Xray L knee: Soft tissue swelling/cellulitis. L tib/fib: Soft tissue swelling/cellulitis. Lower Extremity CT: Left calf cellulitis, no abscess Venous dopplers - negative DVT Meds: Started on Vancomycin 1g IV q12hrs, Follow up vanc trough 05/28/17 - @ 12.9 - will continue Start zosyn 4.5g IV q8hrs tylenol 650mg PO q6hrs PRN Leukocytosis Likely 2/2 to cellulitis CXR: Mild venous congestion. Right hilar prominence. Rapid flu- negative HIV 1/2, hepatitis panel - negative Abnormal UA Patient had one bout of dark urine prior to ED Admits to not properly hydrating himself- he has only had apple juice today UA positive for blood, glucose and protein ASO - negative Urine cx- no growth to date Complement levels- c3 - normal , c4 - elevated at 45.2 , ch50 Nicotine addiction Nicotine patch 21mg daily Prophylaxis Protonix 40mg PO daily Florastor 250mg PO daily SCD on right foot only. DVT risk score is 1 PT Eval: can ambulate with Crutch. DW Dr. Diez, Trupti Brody DO, PGY-1 <Josephine Diez V - Last Filed: 05/30/17 00:05> Objective - Vital Signs/Intake and Output Vital Signs (last 24 hours): Temp Pulse Resp BP Pulse Ox 97.3 F L 71 18 129/77 99 05/29/17 16:49 05/29/17 16:49 05/29/17 16:49 05/29/17 16:49 05/29/17 16:49 Intake and Output: 05/29/17 05/30/17 18:59 06:59 Intake Total 150 Balance 150 - Medications Medications: Current Medications Docusate Sodium (Colace) 100 mg PO BID [facility] Last Admin: 05/29/17 18:54 Dose: 100 mg Hydromorphone HCl (Dilaudid) 0.5 mg IVP Q4H PRN PRN Reason: Pain, severe (8-10) Piperacillin Sod/Tazobactam (Sod 3.375 gm/ Sodium Chloride) 100 mls @ 200 mls/ hr IVPB Q8H [facility] Last Admin: 05/29/17 18:56 Dose: 200 mls/hr Vancomycin/Sodium Chloride (Vancomycin 1 Gm/Ns 200 Ml) 1 gm in 200 mls @ 125 mls/hr IVPB Q12H [facility] Stop: 06/02/17 17:01 Last Admin: 05/29/17 17:59 Dose: 125 mls/hr Sodium Chloride (Sodium Chloride 0.9%) 1,000 mls @ 100 mls/hr IV .Q10H [facility] Last Admin: 05/29/17 17:52 Dose: 100 mls/hr Nicotine (Nicoderm Cq) 1 patch TD DAILY [facility] Last Admin: 05/29/17 10:06 Dose: 1 patch Oxycodone/Acetaminophen (Percocet 5/325 Mg Tab) 1 tab PO Q4 PRN PRN Reason: Pain, moderate (4-7) Stop: 06/01/17 13:29 Last Admin: 05/29/17 21:54 Dose: 1 tab Pantoprazole Sodium (Protonix Ec Tab) 40 mg PO DAILY [facility] Last Admin: 05/29/17 10:06 Dose: 40 mg Saccharomyces Boulardii (Florastor) 250 mg PO BID [facility] Last Admin: 05/29/17 18:54 Dose: 250 mg - Labs Labs: 05/29/17 08:05 05/29/17 08:05 PT 13.4 SECONDS (9.7-12.2) H 05/29/17 08:05 INR 1.2 05/29/17 08:05 APTT 33 SECONDS (21-34) 05/29/17 08:05 Attending/Attestation - Attestation I have personally seen and examined this patient.: Yes I have fully participated in the care of the patient.: Yes I have reviewed all pertinent clinical information, including history, physical exam and plan: Yes Notes (Text): Patient seen, examined and case discussed with medical assistant ob gyn on rounds. Patient seen during rounds post operative from I&D by orthopedic help appreciated. Patient reports pain is controlled with Percocet given postoperatively. Patient reports he is feeling okay. Per operative report patient had an incision and drainage and irrigation debridement and there was a culture and biopsy of the left leg abscess with minimal blood loss about 20 mL. We'll follow up on the culture and biopsy. Patient cellulitis improving limited to the knee prior to OR as seen by resident. We'll continue antibiotics. White count has improved prior to OR. Order for followup vancomycin trough for tomorrow a.m. Assessment/plan 1) LLE Cellulitis Left Knee Abscess * ID Dr. Longoria consulted- recs appreciated * Orthopedic, Dr. Pineda on board--help appreciated * on 05/29 went for incision and drainage and irrigation debridement and there was a culture and biopsy of the left leg * Blood cultures (05/26/17): no growth after 3 days X2 * Wound cx (05/26/17): MRSA * On contact isolation * Urine culture: no growth * Imaging: * Xray L knee: Soft tissue swelling/cellulitis. * L tib/fib: Soft tissue swelling/cellulitis. * Lower Extremity CT: Left calf cellulitis, no abscess * Venous dopplers - negative DVT * MRI official report pending. Meds: * Started on Vancomycin 1g IV q12hrs, Follow up vanc trough 05/30/17 with goal of 15-20 * Start zosyn 3.375g IV q6hrs * tylenol 650mg PO q6hrs PRN * HIV 1/2, hepatitis panel - negative 2) Leukocytosis * Likely 2/2 to cellulitis * Improving * CXR: Mild venous congestion. Right hilar prominence. Rapid flu- negative * HIV 1/2, hepatitis panel - negative 3) Abnormal UA * Patient had one bout of dark urine prior to ED today * Admits to not properly hydrating himself- he has only had apple juiceon admission * UA positive for blood, glucose and protein * Urine culture: no growth * ASO - negative * f/u complement levels- c3, c4, ch50 4) Nicotine addiction Nicotine patch 21mg daily 5) Prophylaxis * Protonix 40mg PO daily * Florastor 250mg PO daily * SCD on right foot only. DVT risk score is 1 * NS 75cc/hr * PT eval: Home
--- NOTE | 2017-05-30 00:22 | CARD ---
APPROVED REPORT EKG Measurement Heart [id number] <Conclusion> Normal sinus rhythm T wave abnormality, consider inferior ischemia Abnormal ECG
[2017-05-30] MEDS: HYDROmorphone 0.5 mg/0.5 ml ISec IVP PRN (01:23)
[2017-05-30] MEDS: Piperacillin/Tazobact 3.375 GM in Sodium Chloride 100 ML IVPB SCH ×3 (01:24→18:49)
[2017-05-30] MEDS: Vancomycin 1 gm/NS 200 ml 1 GM/200 ML BAG IVPB SCH ×2 (05:30→17:04)
--- NOTE | 2017-05-30 07:58 | CP.PCM.PN ---
Subjective - Date & Time of Evaluation Date of Evaluation: 05/30/17 Time of Evaluation: 07:56 - Subjective Subjective: Patient states he had a lot of pain overnight, the pain medication helped. Denies numbness/tingling. Objective - Vital Signs/Intake and Output Vital Signs (last 24 hours): Temp Pulse Resp BP Pulse Ox 98 F 89 20 117/72 97 05/29/17 23:40 05/29/17 23:40 05/29/17 23:40 05/29/17 23:40 05/29/17 23:40 Intake and Output: 05/30/17 05/30/17 06:59 18:59 Intake Total 2400 Output Total 1100 Balance 1300 - Medications Medications: Current Medications Docusate Sodium (Colace) 100 mg PO BID [facility] Last Admin: 05/29/17 18:54 Dose: 100 mg Hydromorphone HCl (Dilaudid) 0.5 mg IVP Q4H PRN PRN Reason: Pain, severe (8-10) Last Admin: 05/30/17 01:23 Dose: 0.5 mg Piperacillin Sod/Tazobactam (Sod 3.375 gm/ Sodium Chloride) 100 mls @ 200 mls/ hr IVPB Q8H [facility] Last Admin: 05/30/17 01:24 Dose: 200 mls/hr Vancomycin/Sodium Chloride (Vancomycin 1 Gm/Ns 200 Ml) 1 gm in 200 mls @ 125 mls/hr IVPB Q12H [facility] Stop: 06/02/17 17:01 Last Admin: 05/30/17 05:30 Dose: 125 mls/hr Sodium Chloride (Sodium Chloride 0.9%) 1,000 mls @ 100 mls/hr IV .Q10H [facility] Last Admin: 05/29/17 17:52 Dose: 100 mls/hr Nicotine (Nicoderm Cq) 1 patch TD DAILY [facility] Last Admin: 05/29/17 10:06 Dose: 1 patch Oxycodone/Acetaminophen (Percocet 5/325 Mg Tab) 1 tab PO Q4 PRN PRN Reason: Pain, moderate (4-7) Stop: 06/01/17 13:29 Last Admin: 05/29/17 21:54 Dose: 1 tab Pantoprazole Sodium (Protonix Ec Tab) 40 mg PO DAILY [facility] Last Admin: 02/28/18 10:06 Dose: 40 mg Saccharomyces Boulardii (Florastor) 250 mg PO BID [facility] Last Admin: 05/29/17 18:54 Dose: 250 mg - Labs Labs: 05/29/17 08:05 05/29/17 08:05 PT 13.4 SECONDS (9.7-12.2) H 05/29/17 08:05 INR 1.2 05/29/17 08:05 APTT 33 SECONDS (21-34) 05/29/17 08:05 - Extremities Exam Additional comments: No increase in swelling, compartments soft. +ROM ankle/toes,s ensation intact, + DP/PT pulses, calves soft NT neg homans, no drainage visible Assessment and Plan (1) Abscess of left leg Assessment & Plan: POD#1 s/p I&D left leg Per Dr. Pineda, recommend 3-6 weeks of IV antibiotics elevation f/u cultures, cultures on admission +MRSA d/w Dr. Pineda, agrees with above Status: Acute (2) Cellulitis of left lower limb Status: Acute
[2017-05-30 08:04] LABS: BASO # 0.1 K/uL (0.0-0.2); BASO % 0.6 % (0.0-2.0); EOS # 0.4 K/uL (0.0-0.7); EOS % 4.1 % (0.0-4.0); HEMOGLOBIN 14.3 g/dL (12.0-18.0); LYMPH # 1.7 K/uL (1.0-4.3); LYMPH % 17.3 % (20.0-40.0); MEAN CELL VOLUME 95.3 fL (80.0-94.0); MEAN CORPUSCULAR HEMOGLOBIN 33.8 pg (27.0-31.0); MEAN CORPUSCULAR HGB CONC 35.4 g/dL (33.0-37.0); MEAN PLATELET VOLUME 8.4 fL (7.2-11.7); MONO # 0.7 K/uL (0.0-0.8); MONO % 7.2 % (0.0-10.0); NEUT # 6.9 K/uL (1.8-7.0); NEUT % 70.8 % (50.0-75.0); RBC 4.24 Mil/uL (4.40-5.90); WHITE BLOOD COUNT 9.8 K/uL (4.8-10.8)
[2017-05-30] MEDS: Pantoprazole 40 mg EC Tab PO SCH (09:42)
[2017-05-30] MEDS: Saccharomyces Boulardi 250 mg Cap PO SCH ×2 (09:42→17:01)
[2017-05-30 09:44] LABS: ALB/GLOB RATIO 1.1 (1.0-2.1); ALBUMIN 3.6 g/dL (3.5-5.0); ALT/SGPT 31 U/L (21-72); AST/SGOT 28 U/L (17-59); BLOOD UREA NITROGEN 4 mg/dL (9-20); CALCIUM 8.9 mg/dl (8.6-10.4); GFR AFRICAN-AMERICAN > 60; GFR NON-AFRICAN AMERICAN > 60
--- NOTE | 2017-05-30 10:08 | MRI ---
MRI left lower extremity History: Abscess. Comparison: None available. Technique: Multi-echo multiplanar sequences were performed through the left lower extremity without and with the use of intravenous contrast. Findings: Please note the knee joint was not imaged in its entirety. Small fluid collection/enhancing collection concerning for abscess seen within the anterior medial soft tissues at the level of the proximal tibia measuring 2.7 x 0.7 x 1.3 centimeters. Surrounding edema within the anterior lateral soft tissues at the level of the knee joint and lower leg. Incidentally noted is a 2.7 centimeter ovoid lesion in the proximal medullary cavity posteriorly in the right tibia best seen on series 4, image 17 which demonstrates peripheral decreased T1 and STIR signal. This is of uncertain clinical etiology and correlation with plain x-ray is recommended. This may represent a nonossifying fibroma. Additional considerations not excluded. Clinical Correlation. Impression: 1. Findings concerning for a small abscess collection measuring 2.7 x 0.7 x 1.3 centimeters noted within the soft tissues of the anteromedial leg located approximately 5.5 centimeters below the knee joint. 2. Incidentally noted is a 2.7 centimeter ovoid lesion in the proximal medullary cavity posteriorly in the right tibia best seen on series 4, image 17 which demonstrates peripheral decreased T1 and STIR signal. This is of uncertain clinical etiology and correlation with plain x-ray is recommended. This may represent a nonossifying fibroma. Additional considerations not excluded. Clinical Correlation. 3. Findings concerning for cellulitis as described above. These findings were preliminarily reported at 6:12 p.m. on 05/28/[address] Zoe Kwon from [facility]
--- NOTE | 2017-05-30 10:17 | CP.PCM.PN ---
<FabioTrupti shields - Last Filed: 05/30/17 11:59> Subjective - Date & Time of Evaluation Date of Evaluation: 05/30/17 Time of Evaluation: 09:00 - Subjective Subjective: Medicine Note for Hospitalist Service- Dr. Diez Patient was seen and examined at bedside. Patient reports pain is well controlled with pain mediations. Denied fever, chills, headache, chest pain, SOB , abdominal pain, n/v/d/c, or urinary symptoms. Objective - Vital Signs/Intake and Output Vital Signs (last 24 hours): Temp Pulse Resp BP Pulse Ox 97.5 F L 63 18 149/63 96 05/30/17 07:10 05/30/17 07:10 05/30/17 07:10 05/30/17 07:10 05/30/17 07:10 Intake and Output: 05/30/17 05/30/17 06:59 18:59 Intake Total 2400 Output Total 1100 Balance 1300 - Medications Medications: Current Medications Docusate Sodium (Colace) 100 mg PO BID [facility] Last Admin: 05/30/17 09:42 Dose: 100 mg Hydromorphone HCl (Dilaudid) 0.5 mg IVP Q4H PRN PRN Reason: Pain, severe (8-10) Last Admin: 05/30/17 01:23 Dose: 0.5 mg Piperacillin Sod/Tazobactam (Sod 3.375 gm/ Sodium Chloride) 100 mls @ 200 mls/ hr IVPB Q8H [facility] Last Admin: 05/30/17 10:08 Dose: 200 mls/hr Vancomycin/Sodium Chloride (Vancomycin 1 Gm/Ns 200 Ml) 1 gm in 200 mls @ 125 mls/hr IVPB Q12H [facility] Stop: 06/02/17 17:01 Last Admin: 05/30/17 05:30 Dose: 125 mls/hr Nicotine (Nicoderm Cq) 1 patch TD DAILY [facility] Last Admin: 05/30/17 09:44 Dose: 1 patch Oxycodone/Acetaminophen (Percocet 5/325 Mg Tab) 1 tab PO Q4 PRN PRN Reason: Pain, moderate (4-7) Stop: 06/01/17 13:29 Last Admin: 05/29/17 21:54 Dose: 1 tab Pantoprazole Sodium (Protonix Ec Tab) 40 mg PO DAILY [facility] Last Admin: 05/30/17 09:42 Dose: 40 mg Saccharomyces Boulardii (Florastor) 250 mg PO BID [facility] Last Admin: 05/30/17 09:42 Dose: 250 mg - Labs Labs: 05/30/17 07:56 05/30/17 07:56 PT 13.4 SECONDS (9.7-12.2) H 05/29/17 08:05 INR 1.2 05/29/17 08:05 APTT 33 SECONDS (21-34) 05/29/17 08:05 - Constitutional Appears: No Acute Distress - Head Exam Head Exam: NORMAL INSPECTION, NORMOCEPHALIC - Eye Exam Eye Exam: EOMI, Normal appearance, PERRL Pupil Exam: NORMAL ACCOMODATION - ENT Exam ENT Exam: Mucous Membranes Moist - Respiratory Exam Respiratory Exam: Clear to Ausculation Bilateral, NORMAL BREATHING PATTERN. absent: Decreased Breath Sounds, Wheezes - Cardiovascular Exam Cardiovascular Exam: REGULAR RHYTHM, RRR - GI/Abdominal Exam GI & Abdominal Exam: Soft, Normal Bowel Sounds. absent: Distended, Tenderness - Extremities Exam Extremities Exam: Normal Inspection. absent: Pedal Edema, Tenderness Additional comments: dressing c/d/i/ - Neurological Exam Neurological Exam: Alert, Awake, Oriented x3 - Psychiatric Exam Psychiatric exam: Normal Affect, Normal Mood - Skin Skin Exam: Dry, Intact, Normal Color, Warm Assessment and Plan - Assessment and Plan (Free Text) Plan: LLE Cellulitis/ Abscess ID Dr. Longoria consulted- recs appreciated Ortho Consulted for concerns of septic joint - s/p I&D Blood cultures- negative Wound Culture 05/26- MRSA + S/P I&D POD #1 Pending repeat Wound cultures 05/29 As per ortho recommend 3-5 weeks of IV abx PICC line will be placed today Case Management will arrange for outpatient infusion center; once we receive results of wound culture and antibiotic regimen Imaging: Xray L knee: Soft tissue swelling/cellulitis. L tib/fib: Soft tissue swelling/cellulitis. Lower Extremity CT: Left calf cellulitis, no abscess Venous dopplers - negative DVT Meds: Started on Vancomycin 1g IV q12hrs, Follow up vanc trough 05/28/17 - @ 12.9 - will continue Start zosyn 4.5g IV q8hrs tylenol 650mg PO q6hrs PRN Abnormal UA Patient had one bout of dark urine prior to ED Admits to not properly hydrating himself- he has only had apple juice today UA positive for blood, glucose and protein ASO - negative Urine cx- no growth to date Complement levels- c3 - normal , c4 - elevated at 45.2 , ch50 Leukocytosis _ RESOLVED Likely 2/2 to cellulitis CXR: Mild venous congestion. Right hilar prominence. Rapid flu- negative HIV 1/2, hepatitis panel - negative Nicotine addiction Nicotine patch 21mg daily Prophylaxis Protonix 40mg PO daily Florastor 250mg PO daily SCD on right foot only. DVT risk score is 1 PT Eval: can ambulate with Crutch. DW Dr. Diez, Trupti Brody DO, PGY-1 <Josephine Diez V - Last Filed: 05/30/17 22:35> Objective - Vital Signs/Intake and Output Vital Signs (last 24 hours): Temp Pulse Resp BP Pulse Ox 98.7 F 98 H 20 124/77 96 05/30/17 17:05 05/30/17 17:05 05/30/17 17:05 05/30/17 17:05 05/30/17 17:05 Intake and Output: 05/30/17 05/31/17 18:59 06:59 Intake Total 920 Output Total 1150 Balance -1150 920 - Medications Medications: Current Medications Docusate Sodium (Colace) 100 mg PO BID [facility] Last Admin: 05/30/17 17:01 Dose: 100 mg Hydromorphone HCl (Dilaudid) 0.5 mg IVP Q4H PRN PRN Reason: Pain, severe (8-10) Last Admin: 05/30/17 01:23 Dose: 0.5 mg Piperacillin Sod/Tazobactam (Sod 3.375 gm/ Sodium Chloride) 100 mls @ 200 mls/ hr IVPB Q8H [facility] Last Admin: 05/30/17 18:49 Dose: 200 mls/hr Vancomycin/Sodium Chloride (Vancomycin 1 Gm/Ns 200 Ml) 1 gm in 200 mls @ 133 mls/hr IVPB Q8H [facility] Stop: 06/05/17 01:01 Nicotine (Nicoderm Cq) 1 patch TD DAILY [facility] Last Admin: 05/30/17 09:44 Dose: 1 patch Oxycodone/Acetaminophen (Percocet 5/325 Mg Tab) 1 tab PO Q4 PRN PRN Reason: Pain, moderate (4-7) Stop: 06/01/17 13:29 Last Admin: 05/29/17 21:54 Dose: 1 tab Pantoprazole Sodium (Protonix Ec Tab) 40 mg PO DAILY [facility] Last Admin: 05/30/17 09:42 Dose: 40 mg Saccharomyces Boulardii (Florastor) 250 mg PO BID [facility] Last Admin: 05/30/17 17:01 Dose: 250 mg - Labs Labs: 05/30/17 07:56 05/30/17 07:56 PT 13.4 SECONDS (9.7-12.2) H 05/29/17 08:05 INR 1.2 05/29/17 08:05 APTT 33 SECONDS (21-34) 05/29/17 08:05 Attending/Attestation - Attestation I have personally seen and examined this patient.: Yes I have fully participated in the care of the patient.: Yes I have reviewed all pertinent clinical information, including history, physical exam and plan: Yes Notes (Text): Patient seen, examined and case discussed with medical records coordinator on rounds. Patient seen during rounds post operative day from I&D by orthopedic; help appreciated. Patient reports pain is controlled with Percocet. Patient is feeling better compared to yesterday. Orthopedic recommending for 3-6 weeks of IV abx. Patient has had cultures taken from the OR. Will need to monitor the cultures post-OR. Patient will be setup for PICC line today for anticipated long-term antibiotics. Vancomycin trough is normal. White count has normalized. Assessment/plan 1) LLE Cellulitis Left Knee Abscess * ID Dr. Longoria consulted- recs appreciated * Orthopedic, Dr. Pineda on board--help appreciated * on 05/29 went for incision and drainage and irrigation debridement and there was a culture and biopsy of the left leg * Follow-up OR cultures * Blood cultures (05/26/17): no growth after 4 days X2 * Wound cx (05/26/17): MRSA * On contact isolation * Urine culture: no growth * Imaging: * Xray L knee: Soft tissue swelling/cellulitis. * L tib/fib: Soft tissue swelling/cellulitis. * Lower Extremity CT: Left calf cellulitis, no abscess * Venous dopplers - negative DVT * MRI official: official report available in the chart Meds: * Started on Vancomycin 1g IV q12hrs * Start zosyn 3.375g IV q6hrs * tylenol 650mg PO q6hrs PRN * HIV 1/2, hepatitis panel - negative 2) Leukocytosis * Likely 2/2 to cellulitis * Improving * CXR: Mild venous congestion. Right hilar prominence. Rapid flu- negative * HIV 1/2, hepatitis panel - negative 3) Abnormal UA * Patient had one bout of dark urine prior to ED today * Admits to not properly hydrating himself- he has only had apple juiceon admission * UA positive for blood, glucose and protein * Urine culture: no growth * ASO - negative * f/u complement levels- c3, c4, ch50 4) Nicotine addiction Nicotine patch 21mg daily 5) Prophylaxis * Protonix 40mg PO daily * Florastor 250mg PO daily * SCD on right foot only. DVT risk score is 1 * NS 75cc/hr * PT eval: Home Disposition: Will need to setup patient for PICC line for 3-6 weeks of IV abx for MRSA. We will need to follow-up OR cultures. We will need to follow-up with ID to see antibiotic of choice pending OR cultures. We will need to see if patient is eligible for outpatient transfusion center or not for IV abx.
--- NOTE | 2017-05-30 14:36 | RAD ---
PROCEDURE: CHEST RADIOGRAPH, 1 VIEW HISTORY: PICC confirmation COMPARISON: 05/21/2017 FINDINGS: LUNGS: Clear. PLEURA: No pneumothorax or pleural fluid seen. CARDIOVASCULAR: Normal heart size. Right subclavian PICC line insertion tip estimated superior vena cava. OSSEOUS STRUCTURES: No significant abnormalities. VISUALIZED UPPER ABDOMEN: Normal. OTHER FINDINGS: None. IMPRESSION: Right PICC line insertion as above. No pneumothorax appreciated
--- NOTE | 2017-05-30 18:37 | CP.PCM.PN ---
Subjective - Date & Time of Evaluation Date of Evaluation: 05/30/17 Time of Evaluation: 08:00 - Subjective Subjective: improving s/p I and D IV rx in progress Objective - Vital Signs/Intake and Output Vital Signs (last 24 hours): Temp Pulse Resp BP Pulse Ox 98.7 F 98 H 20 124/77 96 05/30/17 17:05 05/30/17 17:05 05/30/17 17:05 05/30/17 17:05 05/30/17 17:05 Intake and Output: 05/30/17 05/30/17 06:59 18:59 Intake Total 2400 Output Total 1100 1150 Balance 1300 -1150 - Medications Medications: Current Medications Docusate Sodium (Colace) 100 mg PO BID [facility] Last Admin: 05/30/17 17:01 Dose: 100 mg Hydromorphone HCl (Dilaudid) 0.5 mg IVP Q4H PRN PRN Reason: Pain, severe (8-10) Last Admin: 05/30/17 01:23 Dose: 0.5 mg Piperacillin Sod/Tazobactam (Sod 3.375 gm/ Sodium Chloride) 100 mls @ 200 mls/ hr IVPB Q8H [facility] Last Admin: 05/30/17 10:08 Dose: 200 mls/hr Vancomycin/Sodium Chloride (Vancomycin 1 Gm/Ns 200 Ml) 1 gm in 200 mls @ 125 mls/hr IVPB Q12H [facility] Stop: 06/02/17 17:01 Last Admin: 05/30/17 17:04 Dose: 125 mls/hr Nicotine (Nicoderm Cq) 1 patch TD DAILY [facility] Last Admin: 05/30/17 09:44 Dose: 1 patch Oxycodone/Acetaminophen (Percocet 5/325 Mg Tab) 1 tab PO Q4 PRN PRN Reason: Pain, moderate (4-7) Stop: 06/01/17 13:29 Last Admin: 05/29/17 21:54 Dose: 1 tab Pantoprazole Sodium (Protonix Ec Tab) 40 mg PO DAILY [facility] Last Admin: 05/30/17 09:42 Dose: 40 mg Saccharomyces Boulardii (Florastor) 250 mg PO BID [facility] Last Admin: 05/30/17 17:01 Dose: 250 mg - Labs Labs: 05/30/17 07:56 05/30/17 07:56 PT 13.4 SECONDS (9.7-12.2) H 05/29/17 08:05 INR 1.2 05/29/17 08:05 APTT 33 SECONDS (21-34) 05/29/17 08:05 - Constitutional Appears: Non-toxic, Chronically Ill - Head Exam Head Exam: NORMOCEPHALIC - Eye Exam Eye Exam: PERRL - ENT Exam ENT Exam: Mucous Membranes Dry - Neck Exam Neck Exam: absent: Lymphadenopathy - Respiratory Exam Respiratory Exam: Decreased Breath Sounds - Cardiovascular Exam Cardiovascular Exam: REGULAR RHYTHM - GI/Abdominal Exam GI & Abdominal Exam: Distended - Rectal Exam Rectal Exam: Deferred - Exam Exam: NORMAL INSPECTION Assessment and Plan - Assessment and Plan (Free Text) Plan: cont iv rx for mrsa abscess
[2017-05-30] MEDS: Oxycodone/Acetaminophen 5/325 mg Tab PO PRN (22:31)
[2017-05-31] MEDS: Vancomycin 1 gm/NS 200 ml 1 GM/200 ML BAG IVPB SCH ×2 (00:20→08:24)
[2017-05-31] MEDS: Piperacillin/Tazobact 3.375 GM in Sodium Chloride 100 ML IVPB SCH ×2 (02:08→09:48)
[2017-05-31 07:31] LABS: BASO # 0.1 K/uL (0.0-0.2); BASO % 0.6 % (0.0-2.0); EOS # 0.3 K/uL (0.0-0.7); EOS % 3.1 % (0.0-4.0); HEMOGLOBIN 13.6 g/dL (12.0-18.0); LYMPH # 1.8 K/uL (1.0-4.3); LYMPH % 18.1 % (20.0-40.0); MEAN CELL VOLUME 95.3 fL (80.0-94.0); MEAN CORPUSCULAR HEMOGLOBIN 33.9 pg (27.0-31.0); MEAN CORPUSCULAR HGB CONC 35.6 g/dL (33.0-37.0); MEAN PLATELET VOLUME 8.3 fL (7.2-11.7); MONO # 0.8 K/uL (0.0-0.8); MONO % 7.6 % (0.0-10.0); NEUT # 7.1 K/uL (1.8-7.0); NEUT % 70.6 % (50.0-75.0); RED CELL DISTRIBUTION WIDTH 11.8 % (11.5-14.5)
[2017-05-31 07:34] LABS: VANCOMYCIN TROUGH 11.7 ug/mL (5.0-10.0)
[2017-05-31 07:41] LABS: ALB/GLOB RATIO 1.1 (1.0-2.1); ALBUMIN 3.7 g/dL (3.5-5.0); ALT/SGPT 39 U/L (21-72); AST/SGOT 30 U/L (17-59); BLOOD UREA NITROGEN 5 mg/dL (9-20); CALCIUM 9.1 mg/dl (8.6-10.4); GFR AFRICAN-AMERICAN > 60; GFR NON-AFRICAN AMERICAN > 60; MAGNESIUM 2.1 mg/dL (1.6-2.3)
--- NOTE | 2017-05-31 09:02 | CP.PCM.PN ---
Subjective - Date & Time of Evaluation Date of Evaluation: 05/31/17 Time of Evaluation: 07:30 - Subjective Subjective: Patient states he still has pain in his leg but is better. No new complaints. Objective - Vital Signs/Intake and Output Vital Signs (last 24 hours): Temp Pulse Resp BP Pulse Ox 98.3 F 72 20 100/66 98 05/31/17 08:00 05/31/17 08:00 05/31/17 08:00 05/31/17 08:00 05/31/17 08:00 Intake and Output: 05/31/17 05/31/17 06:59 18:59 Intake Total 1320 Balance 1320 - Medications Medications: Current Medications Docusate Sodium (Colace) 100 mg PO BID [facility] Last Admin: 05/30/17 17:01 Dose: 100 mg Hydromorphone HCl (Dilaudid) 0.5 mg IVP Q4H PRN PRN Reason: Pain, severe (8-10) Last Admin: 05/30/17 01:23 Dose: 0.5 mg Piperacillin Sod/Tazobactam (Sod 3.375 gm/ Sodium Chloride) 100 mls @ 200 mls/ hr IVPB Q8H [facility] Last Admin: 05/31/17 02:08 Dose: 200 mls/hr Vancomycin/Sodium Chloride (Vancomycin 1 Gm/Ns 200 Ml) 1 gm in 200 mls @ 133 mls/hr IVPB Q8H [facility] Stop: 06/05/17 01:01 Last Admin: 05/31/17 00:20 Dose: 133 mls/hr Nicotine (Nicoderm Cq) 1 patch TD DAILY [facility] Last Admin: 05/30/17 09:44 Dose: 1 patch Oxycodone/Acetaminophen (Percocet 5/325 Mg Tab) 1 tab PO Q4 PRN PRN Reason: Pain, moderate (4-7) Stop: 06/01/17 13:29 Last Admin: 05/30/17 22:31 Dose: 1 tab Pantoprazole Sodium (Protonix Ec Tab) 40 mg PO DAILY [facility] Last Admin: 05/30/17 09:42 Dose: 40 mg Saccharomyces Boulardii (Florastor) 250 mg PO BID [facility] Last Admin: 05/30/17 17:01 Dose: 250 mg - Labs Labs: 05/31/17 07:12 05/31/17 07:12 PT 13.4 SECONDS (9.7-12.2) H 05/29/17 08:05 INR 1.2 05/29/17 08:05 APTT 33 SECONDS (21-34) 05/29/17 08:05 - Extremities Exam Additional comments: Left leg: still noted erythema and swelling, no drainage. No joint effusion. non tender to knee joint. Tender to incision site and area of erythema. Calf softer. still noted swelling to area. sensation intact +DP/PT pulses no pain with active/passive ROM toes Assessment and Plan (1) Abscess of left leg Assessment & Plan: POD#2 s/p left leg I&D still significant erythema to left leg noted still swollen continue antibiotics and monitoring at this time ID consult appreciated d/w Dr. berger, agrees with above rec min 3 weeks IV abx f/u cultures, initial +MRSA Status: Acute (2) Cellulitis of left lower limb Status: Acute
[2017-05-31] MEDS: HYDROmorphone 0.5 mg/0.5 ml ISec IVP PRN (09:40)
[2017-05-31] MEDS: Pantoprazole 40 mg EC Tab PO SCH (09:49)
[2017-05-31] MEDS: Saccharomyces Boulardi 250 mg Cap PO SCH ×2 (09:49→18:18)
[2017-05-31] MEDS ORDERED: Ergocalciferol 50,000 Intl Units Cap PO SCH (10:15)
--- NOTE | 2017-05-31 11:41 | CP.PCM.PCO ---
Physician Communication Note - Physician Communication Note Physician Communication Note: as per ID Telavancin 10mg/kg x 3 weeks; DX: cellulitis, ?septic joint
--- NOTE | 2017-05-31 13:27 | CP.PCM.PN ---
<Trupti Brody - Last Filed: 05/31/17 14:15> Subjective - Date & Time of Evaluation Date of Evaluation: 05/31/17 Time of Evaluation: 09:00 - Subjective Subjective: Medicine Note for Hospitalist Service- Dr. Diez Patient was seen and examined at bedside. Patient reports pain is well controlled with pain mediations. Denied fever, chills, headache, chest pain, SOB , abdominal pain, n/v/d/c, or urinary symptoms. Objective - Vital Signs/Intake and Output Vital Signs (last 24 hours): Temp Pulse Resp BP Pulse Ox 98.3 F 72 20 100/66 98 05/31/17 08:00 05/31/17 08:00 05/31/17 08:00 05/31/17 08:00 05/31/17 08:00 Intake and Output: 05/31/17 05/31/17 06:59 18:59 Intake Total 1320 Balance 1320 - Medications Medications: Current Medications Docusate Sodium (Colace) 100 mg PO BID [facility] Last Admin: 05/31/17 09:49 Dose: 100 mg Ergocalciferol (Drisdol 50,000 Intl Units Cap) 1 cap PO Q7D [facility] Last Admin: 05/31/17 10:38 Dose: 1 cap Telavancin 750 mg/ Sodium (Chloride) 100 mls @ 100 mls/hr IVPB Q24H [facility] Ibuprofen (Motrin Tab) 400 mg PO Q6H PRN PRN Reason: Pain, Mild (1-3) Nicotine (Nicoderm Cq) 1 patch TD DAILY [facility] Last Admin: 05/31/17 09:49 Dose: 1 patch Oxycodone/Acetaminophen (Percocet 5/325 Mg Tab) 1 tab PO Q4 PRN PRN Reason: Pain, moderate (4-7) Stop: 06/01/17 13:29 Last Admin: 05/30/17 22:31 Dose: 1 tab Pantoprazole Sodium (Protonix Ec Tab) 40 mg PO DAILY [facility] Last Admin: 05/31/17 09:49 Dose: 40 mg Saccharomyces Boulardii (Florastor) 250 mg PO BID [facility] Last Admin: 05/31/17 09:49 Dose: 250 mg - Labs Labs: 05/31/17 07:12 05/31/17 07:12 PT 13.4 SECONDS (9.7-12.2) H 05/29/17 08:05 INR 1.2 05/29/17 08:05 APTT 33 SECONDS (21-34) 05/29/17 08:05 - Additional Findings Additional findings: - Constitutional Appears: No Acute Distress - Head Exam Head Exam: NORMAL INSPECTION, NORMOCEPHALIC - Eye Exam Eye Exam: EOMI, Normal appearance, PERRL Pupil Exam: NORMAL ACCOMODATION - ENT Exam ENT Exam: Mucous Membranes Moist - Respiratory Exam Respiratory Exam: Clear to Ausculation Bilateral, NORMAL BREATHING PATTERN. absent: Decreased Breath Sounds, Wheezes - Cardiovascular Exam Cardiovascular Exam: REGULAR RHYTHM, RRR - GI/Abdominal Exam GI & Abdominal Exam: Soft, Normal Bowel Sounds. absent: Distended, Tenderness - Extremities Exam Extremities Exam: Normal Inspection. absent: Pedal Edema, Tenderness Additional comments: dressing c/d/i/ - Neurological Exam Neurological Exam: Alert, Awake, Oriented x3 - Psychiatric Exam Psychiatric exam: Normal Affect, Normal Mood - Skin Skin Exam: Dry, Intact, Normal Color, Warm Assessment and Plan - Assessment and Plan (Free Text) Plan: LLE Cellulitis/ Abscess ID Dr. Longoria consulted- recs appreciated Ortho Consulted for concerns of septic joint - s/p I&D Blood cultures- negative Wound Culture 05/26- MRSA + S/P I&D 05/29 PICC line will be placed Wound cultures 05/29 - negative to date As per ortho recommend 3 weeks -IV abx Case Management will arrange for outpatient infusion center; Telavancin 750mg IVP daily x [address] Longoria. Imaging: Xray L knee: Soft tissue swelling/cellulitis. L tib/fib: Soft tissue swelling/cellulitis. Lower Extremity CT: Left calf cellulitis, no abscess Venous dopplers - negative DVT Meds: tylenol 650mg PO q6hrs PRN Telavancin 750mg IVP daily - started today 05/31/17 Abnormal UA Patient had one bout of dark urine prior to ED Admits to not properly hydrating himself- he has only had apple juice today UA positive for blood, glucose and protein ASO - negative Urine cx- no growth to date Complement levels- c3 - normal , c4 - elevated at 45.2 , ch50 Leukocytosis _ RESOLVED Likely 2/2 to cellulitis CXR: Mild venous congestion. Right hilar prominence. Rapid flu- negative HIV 1/2, hepatitis panel - negative Nicotine addiction Nicotine patch 21mg daily Prophylaxis Protonix 40mg PO daily Florastor 250mg PO daily SCD on right foot only. DVT risk score is 1 PT Eval: can ambulate with Crutch. D DW Dr. Diez, Trupti Brody DO, PGY-1 <Josephine Diez V - Last Filed: 05/31/17 23:12> Objective - Vital Signs/Intake and Output Vital Signs (last 24 hours): Temp Pulse Resp BP Pulse Ox 98.1 F 90 20 112/70 99 05/31/17 16:00 05/31/17 16:00 05/31/17 16:00 05/31/17 16:00 05/31/17 16:00 Intake and Output: 05/31/17 05/31/17 06:59 18:59 Intake Total 1320 900 Balance 1320 900 - Medications Medications: Current Medications Docusate Sodium (Colace) 100 mg PO BID [facility] Last Admin: 05/31/17 18:19 Dose: 100 mg Ergocalciferol (Drisdol 50,000 Intl Units Cap) 1 cap PO Q7D [facility] Last Admin: 05/31/17 10:38 Dose: 1 cap Telavancin 750 mg/ Sodium (Chloride) 100 mls @ 100 mls/hr IVPB Q24H [facility] Last Admin: 05/31/17 14:36 Dose: 100 mls/hr Ibuprofen (Motrin Tab) 400 mg PO Q6H PRN PRN Reason: Pain, Mild (1-3) Nicotine (Nicoderm Cq) 1 patch TD DAILY [facility] Last Admin: 05/31/17 09:49 Dose: 1 patch Oxycodone/Acetaminophen (Percocet 5/325 Mg Tab) 1 tab PO Q4 PRN PRN Reason: Pain, moderate (4-7) Stop: 06/01/17 13:29 Last Admin: 05/30/17 22:31 Dose: 1 tab Pantoprazole Sodium (Protonix Ec Tab) 40 mg PO DAILY [facility] Last Admin: 05/31/17 09:49 Dose: 40 mg Saccharomyces Boulardii (Florastor) 250 mg PO BID [facility] Last Admin: 05/31/17 18:18 Dose: 250 mg - Labs Labs: 05/31/17 07:12 05/31/17 07:12 PT 13.4 SECONDS (9.7-12.2) H 05/29/17 08:05 INR 1.2 05/29/17 08:05 APTT 33 SECONDS (21-34) 05/29/17 08:05 Attending/Attestation - Attestation I have personally seen and examined this patient.: Yes I have fully participated in the care of the patient.: Yes I have reviewed all pertinent clinical information, including history, physical exam and plan: Yes Notes (Text): Patient seen, examined and case discussed with day-time resident. Patient seen with patient's mother and patient has allowed us to share his information with his uncle, Dr Siu. Patient reports he is feeling better. Patient is anxious about placing weight on his leg. Patient does not have pain, but its is mindful given he has noted left side swelling. Patient's white count has normalized, afebrile, and cultures from the OR are negative. Infectious Disease has advised for Televacin IV daily for at least 3 weeks, prescription provided to case management for Saturday anticipated discharge date. All questions answered at bedside. Patient encouraged to be ambulatory with assistance from physical therapy. Infectious disease on board.
[2017-05-31] MEDS: Telavancin Hydrochloride 750 MG in Sodium Chloride 0.9% 100 ML IVPB SCH (14:36)
--- NOTE | 2017-05-31 18:50 | CP.PCM.PN ---
Subjective - Date & Time of Evaluation Date of Evaluation: 05/31/17 Time of Evaluation: 07:00 - Subjective Subjective: discussed on rounds severe SSTI with possible joint involvement rx min 3 weeks + MRSA neeed daily IV Rx Televancin added Vanco/ zosyn d/c 'd Objective - Vital Signs/Intake and Output Vital Signs (last 24 hours): Temp Pulse Resp BP Pulse Ox 98.1 F 90 20 112/70 99 05/31/17 16:00 05/31/17 16:00 05/31/17 16:00 05/31/17 16:00 05/31/17 16:00 Intake and Output: 05/31/17 05/31/17 06:59 18:59 Intake Total 1320 900 Balance 1320 900 - Medications Medications: Current Medications Docusate Sodium (Colace) 100 mg PO BID [facility] Last Admin: 05/31/17 18:19 Dose: 100 mg Ergocalciferol (Drisdol 50,000 Intl Units Cap) 1 cap PO Q7D [facility] Last Admin: 05/31/17 10:38 Dose: 1 cap Telavancin 750 mg/ Sodium (Chloride) 100 mls @ 100 mls/hr IVPB Q24H [facility] Last Admin: 05/31/17 14:36 Dose: 100 mls/hr Ibuprofen (Motrin Tab) 400 mg PO Q6H PRN PRN Reason: Pain, Mild (1-3) Nicotine (Nicoderm Cq) 1 patch TD DAILY [facility] Last Admin: 05/31/17 09:49 Dose: 1 patch Oxycodone/Acetaminophen (Percocet 5/325 Mg Tab) 1 tab PO Q4 PRN PRN Reason: Pain, moderate (4-7) Stop: 06/01/17 13:29 Last Admin: 05/30/17 22:31 Dose: 1 tab Pantoprazole Sodium (Protonix Ec Tab) 40 mg PO DAILY [facility] Last Admin: 05/31/17 09:49 Dose: 40 mg Saccharomyces Boulardii (Florastor) 250 mg PO BID [facility] Last Admin: 05/31/17 18:18 Dose: 250 mg - Labs Labs: 05/31/17 07:12 05/31/17 07:12 PT 13.4 SECONDS (9.7-12.2) H 05/29/17 08:05 INR 1.2 05/29/17 08:05 APTT 33 SECONDS (21-34) 05/29/17 08:05
[2017-05-31] MEDS: Oxycodone/Acetaminophen 5/325 mg Tab PO PRN (19:48)
--- NOTE | 2017-06-01 00:06 | CP.PCM.PN ---
<Lucía Dubois - Last Filed: 06/01/17 00:04> Subjective - Date & Time of Evaluation Date of Evaluation: 06/01/17 Time of Evaluation: 00:04 - Subjective Subjective: Patient was seen and examined at bedside. Patient resting comfortably in bed with no new complaints at this time. Patient denies fever, chills, chest pain, SOB, abdominal pain, n/v/d/c. Objective - Vital Signs/Intake and Output Vital Signs (last 24 hours): Temp Pulse Resp BP Pulse Ox 98.1 F 90 20 112/70 99 05/31/17 16:00 05/31/17 16:00 05/31/17 16:00 05/31/17 16:00 05/31/17 16:00 Intake and Output: 05/31/17 06/01/17 18:59 06:59 Intake Total 900 Balance 900 - Medications Medications: Current Medications Docusate Sodium (Colace) 100 mg PO BID [facility] Last Admin: 05/31/17 18:19 Dose: 100 mg Ergocalciferol (Drisdol 50,000 Intl Units Cap) 1 cap PO Q7D [facility] Last Admin: 05/31/17 10:38 Dose: 1 cap Telavancin 750 mg/ Sodium (Chloride) 100 mls @ 100 mls/hr IVPB Q24H [facility] Last Admin: 05/31/17 14:36 Dose: 100 mls/hr Ibuprofen (Motrin Tab) 400 mg PO Q6H PRN PRN Reason: Pain, Mild (1-3) Nicotine (Nicoderm Cq) 1 patch TD DAILY [facility] Last Admin: 05/31/17 09:49 Dose: 1 patch Oxycodone/Acetaminophen (Percocet 5/325 Mg Tab) 1 tab PO Q4 PRN PRN Reason: Pain, moderate (4-7) Stop: 06/01/17 13:29 Last Admin: 05/31/17 19:48 Dose: 1 tab Pantoprazole Sodium (Protonix Ec Tab) 40 mg PO DAILY [facility] Last Admin: 05/31/17 09:49 Dose: 40 mg Saccharomyces Boulardii (Florastor) 250 mg PO BID [facility] Last Admin: 05/31/17 18:18 Dose: 250 mg - Labs Labs: 05/31/17 07:12 05/31/17 07:12 PT 13.4 SECONDS (9.7-12.2) H 05/29/17 08:05 INR 1.2 05/29/17 08:05 APTT 33 SECONDS (21-34) 05/29/17 08:05 - Additional Findings Additional findings: - Constitutional Appears: No Acute Distress - Head Exam Head Exam: NORMAL INSPECTION, NORMOCEPHALIC - Eye Exam Eye Exam: EOMI, Normal appearance, PERRL Pupil Exam: NORMAL ACCOMODATION - ENT Exam ENT Exam: Mucous Membranes Moist - Respiratory Exam Respiratory Exam: Clear to Ausculation Bilateral, NORMAL BREATHING PATTERN. absent: Decreased Breath Sounds, Wheezes - Cardiovascular Exam Cardiovascular Exam: REGULAR RHYTHM, RRR - GI/Abdominal Exam GI & Abdominal Exam: Soft, Normal Bowel Sounds. absent: Distended, Tenderness - Extremities Exam Extremities Exam: Normal Inspection. absent: Pedal Edema, Tenderness Additional comments: dressing c/d/i/ - Neurological Exam Neurological Exam: Alert, Awake, Oriented x3 - Psychiatric Exam Psychiatric exam: Normal Affect, Normal Mood - Skin Skin Exam: Dry, Intact, Normal Color, Warm Assessment and Plan - Assessment and Plan (Free Text) Plan: LLE Cellulitis/ Abscess ID Dr. Longoria consulted- recs appreciated Ortho Consulted for concerns of septic joint - s/p I&D Blood cultures- negative Wound Culture 05/26- MRSA + S/P I&D 05/29 PICC line will be placed Wound cultures 05/29 - negative to date As per ortho recommend 3 weeks -IV abx Case Management will arrange for outpatient infusion center; Telavancin 750mg IVP daily x [address] Longoria. Imaging: Xray L knee: Soft tissue swelling/cellulitis. L tib/fib: Soft tissue swelling/cellulitis. Lower Extremity CT: Left calf cellulitis, no abscess Venous dopplers - negative DVT Meds: tylenol 650mg PO q6hrs PRN Telavancin 750mg IVP daily - started today 05/31/17 Abnormal UA Patient had one bout of dark urine prior to ED Admits to not properly hydrating himself- he has only had apple juice today UA positive for blood, glucose and protein ASO - negative Urine cx- no growth to date Complement levels- c3 - normal , c4 - elevated at 45.2 , ch50 Leukocytosis _ RESOLVED Likely 2/2 to cellulitis CXR: Mild venous congestion. Right hilar prominence. Rapid flu- negative HIV 1/2, hepatitis panel - negative Nicotine addiction Nicotine patch 21mg daily Prophylaxis Protonix 40mg PO daily Florastor 250mg PO daily SCD on right foot only. DVT risk score is 1 PT Eval: can ambulate with Crutch. <Josephine Diez V - Last Filed: 06/01/17 21:00> Objective - Vital Signs/Intake and Output Vital Signs (last 24 hours): Temp Pulse Resp BP Pulse Ox 98.2 F 81 20 124/85 97 06/01/17 15:55 06/01/17 15:55 06/01/17 15:55 06/01/17 15:55 06/01/17 15:55 - Medications Medications: Current Medications Docusate Sodium (Colace) 100 mg PO BID [facility] Last Admin: 06/01/17 18:17 Dose: 100 mg Ergocalciferol (Drisdol 50,000 Intl Units Cap) 1 cap PO Q7D [facility] Last Admin: 05/31/17 10:38 Dose: 1 cap Telavancin 750 mg/ Sodium (Chloride) 100 mls @ 100 mls/hr IVPB Q24H [facility] Last Admin: 06/01/17 13:52 Dose: 100 mls/hr Ibuprofen (Motrin Tab) 400 mg PO Q6H PRN PRN Reason: Pain, Mild (1-3) Nicotine (Nicoderm Cq) 1 patch TD DAILY [facility] Last Admin: 06/01/17 09:55 Dose: 1 patch Pantoprazole Sodium (Protonix Ec Tab) 40 mg PO DAILY [facility] Last Admin: 06/01/17 09:55 Dose: 40 mg Saccharomyces Boulardii (Florastor) 250 mg PO BID [facility] Last Admin: 06/01/17 18:17 Dose: 250 mg - Labs Labs: 06/01/17 07:33 06/01/17 07:33 PT 13.4 SECONDS (9.7-12.2) H 05/29/17 08:05 INR 1.2 05/29/17 08:05 APTT 33 SECONDS (21-34) 05/29/17 08:05 Attending/Attestation - Attestation I have personally seen and examined this patient.: Yes I have fully participated in the care of the patient.: Yes I have reviewed all pertinent clinical information, including history, physical exam and plan: Yes Notes (Text): Patient seen, examined and case discussed with medical affairs manager on rounds. Patient seen during rounds post operative day 2 from I&D by orthopedic; help appreciated. Patient reports pain is controlled. Patient reports he ambulated today. Patient is afebrile. Patient has mild white count. Patient's IV abx switched over to Telavncin 750 IV daily by ID Orthopedic recommending for 3-6 weeks of IV abx. Patient has had cultures taken from the OR, which show no growth. Patient is possible discharge for Saturday, June 03, 2017. Assessment/plan 1) LLE Cellulitis Left Knee Abscess * ID Dr. Longoria consulted- recs appreciated * Orthopedic, Dr. Pineda on board--help appreciated * on 05/29 went for incision and drainage and irrigation debridement and there was a culture and biopsy of the left leg * OR cultures remain negative * Blood cultures (05/26/17): negative * Wound cx (05/26/17): MRSA * On contact isolation * Urine culture: no growth * Imaging: * Xray L knee: Soft tissue swelling/cellulitis. * L tib/fib: Soft tissue swelling/cellulitis. * Lower Extremity CT: Left calf cellulitis, no abscess * Venous dopplers - negative DVT * MRI official: official report available in the chart Meds: * Start Telavncin 750 IV daily by ID * Patient is setup for outpatient transfusion center. * tylenol 650mg PO q6hrs PRN * HIV 1/2, hepatitis panel - negative 2) Leukocytosis * Likely 2/2 to cellulitis * Mildly elevated * CXR: Mild venous congestion. Right hilar prominence. Rapid flu- negative * HIV 1/2, hepatitis panel - negative 3) Abnormal UA (resolved) * Patient had one bout of dark urine prior to ED today * Admits to not properly hydrating himself- he has only had apple juiceon admission * UA positive for blood, glucose and protein * Urine culture: no growth * ASO - negative * f/u complement levels- c3, c4, ch50 4) Nicotine addiction Nicotine patch 21mg daily 5) Prophylaxis * Protonix 40mg PO daily * Florastor 250mg PO daily * SCD on right foot only. DVT risk score is 1 * NS 75cc/hr * PT eval: Home * Ambulatory Disposition: Patient is setup for outpatient transfusion center for Saturday at 9AM on 06/04/17. Patient is on Telvancin 750mg IV daily.
[2017-06-01 07:43] LABS: BASO # 0.1 K/uL (0.0-0.2); BASO % 0.5 % (0.0-2.0); EOS # 0.3 K/uL (0.0-0.7); EOS % 2.8 % (0.0-4.0); HEMOGLOBIN 13.8 g/dL (12.0-18.0); LYMPH # 1.7 K/uL (1.0-4.3); LYMPH % 14.2 % (20.0-40.0); MEAN CELL VOLUME 94.3 fL (80.0-94.0); MEAN CORPUSCULAR HEMOGLOBIN 33.9 pg (27.0-31.0); MEAN CORPUSCULAR HGB CONC 35.9 g/dL (33.0-37.0); MEAN PLATELET VOLUME 8.1 fL (7.2-11.7); MONO # 0.9 K/uL (0.0-0.8); MONO % 7.3 % (0.0-10.0); NEUT # 9.1 K/uL (1.8-7.0); NEUT % 75.2 % (50.0-75.0); NRBC % 0.1 % (0.0-2.0); RBC 4.08 Mil/uL (4.40-5.90); RED CELL DISTRIBUTION WIDTH 11.7 % (11.5-14.5)
[2017-06-01 08:01] LABS: ALB/GLOB RATIO 1.1 (1.0-2.1); ALBUMIN 3.8 g/dL (3.5-5.0); ALT/SGPT 48 U/L (21-72); AST/SGOT 41 U/L (17-59); BLOOD UREA NITROGEN 8 mg/dL (9-20); CALCIUM 9.3 mg/dl (8.6-10.4); GFR AFRICAN-AMERICAN > 60; GFR NON-AFRICAN AMERICAN > 60; MAGNESIUM 2.1 mg/dL (1.6-2.3)
[2017-06-01] MEDS: Pantoprazole 40 mg EC Tab PO SCH (09:55)
[2017-06-01] MEDS: Saccharomyces Boulardi 250 mg Cap PO SCH ×2 (09:55→18:17)
[2017-06-01] MEDS: Telavancin Hydrochloride 750 MG in Sodium Chloride 0.9% 100 ML IVPB SCH (13:52)
--- NOTE | 2017-06-02 04:16 | CP.PCM.PN ---
<Lucía Dubois - Last Filed: 06/02/17 04:13> Subjective - Date & Time of Evaluation Date of Evaluation: 06/02/17 Time of Evaluation: 04:14 - Subjective Subjective: Patient was seen and examined at bedside. Patient resting comfortably in bed with no new complaints at this time. Patient is tolerating his diet and his pain is well controlled. Patient denies fever, chills, chest pain, SOB, abdominal pain, n/v/d/c. Objective - Vital Signs/Intake and Output Vital Signs (last 24 hours): Temp Pulse Resp BP Pulse Ox 98.1 F 77 20 121/82 96 06/02/17 00:26 06/02/17 00:26 06/02/17 00:26 06/02/17 00:26 06/02/17 00:26 - Medications Medications: Current Medications Docusate Sodium (Colace) 100 mg PO BID [facility] Last Admin: 06/01/17 18:17 Dose: 100 mg Ergocalciferol (Drisdol 50,000 Intl Units Cap) 1 cap PO Q7D [facility] Last Admin: 05/31/17 10:38 Dose: 1 cap Telavancin 750 mg/ Sodium (Chloride) 100 mls @ 100 mls/hr IVPB Q24H [facility] Last Admin: 06/01/17 13:52 Dose: 100 mls/hr Ibuprofen (Motrin Tab) 400 mg PO Q6H PRN PRN Reason: Pain, Mild (1-3) Nicotine (Nicoderm Cq) 1 patch TD DAILY [facility] Last Admin: 06/01/17 09:55 Dose: 1 patch Pantoprazole Sodium (Protonix Ec Tab) 40 mg PO DAILY [facility] Last Admin: 06/01/17 09:55 Dose: 40 mg Saccharomyces Boulardii (Florastor) 250 mg PO BID [facility] Last Admin: 06/01/17 18:17 Dose: 250 mg - Labs Labs: 06/01/17 07:33 06/01/17 07:33 PT 13.4 SECONDS (9.7-12.2) H 05/29/17 08:05 INR 1.2 05/29/17 08:05 APTT 33 SECONDS (21-34) 05/29/17 08:05 - Additional Findings Additional findings: - Constitutional Appears: No Acute Distress - Head Exam Head Exam: NORMAL INSPECTION, NORMOCEPHALIC - Eye Exam Eye Exam: EOMI, Normal appearance, PERRL Pupil Exam: NORMAL ACCOMODATION - ENT Exam ENT Exam: Mucous Membranes Moist - Respiratory Exam Respiratory Exam: Clear to Ausculation Bilateral, NORMAL BREATHING PATTERN. absent: Decreased Breath Sounds, Wheezes - Cardiovascular Exam Cardiovascular Exam: REGULAR RHYTHM, RRR - GI/Abdominal Exam GI & Abdominal Exam: Soft, Normal Bowel Sounds. absent: Distended, Tenderness - Extremities Exam Extremities Exam: Normal Inspection. absent: Pedal Edema, Tenderness Additional comments: dressing c/d/i/ - Neurological Exam Neurological Exam: Alert, Awake, Oriented x3 - Psychiatric Exam Psychiatric exam: Normal Affect, Normal Mood - Skin Skin Exam: Dry, Intact, Normal Color, Warm Assessment and Plan - Assessment and Plan (Free Text) Plan: Disposition: Possible discharge for 06/03/17 LLE Cellulitis/ Abscess ID Dr. Longoria consulted- recs appreciated Ortho Consulted for concerns of septic joint - s/p I&D Blood cultures- negative Wound Culture 05/26- MRSA + S/P I&D 05/29 PICC line will be placed Wound cultures 05/29 - negative to date As per ortho recommend 3 weeks -IV abx Case Management will arrange for outpatient infusion center; Telavancin 750mg IVP daily x [address] Longoria. Imaging: Xray L knee: Soft tissue swelling/cellulitis. L tib/fib: Soft tissue swelling/cellulitis. Lower Extremity CT: Left calf cellulitis, no abscess Venous dopplers - negative DVT Meds: tylenol 650mg PO q6hrs PRN Telavancin 750mg IVP daily - started 05/31/17 Abnormal UA Patient had one bout of dark urine prior to ED Admits to not properly hydrating himself- he has only had apple juice today UA positive for blood, glucose and protein ASO - negative Urine cx- no growth to date Complement levels- c3 - normal , c4 - elevated at 45.2 , ch50 Leukocytosis _ RESOLVED Likely 2/2 to cellulitis CXR: Mild venous congestion. Right hilar prominence. Rapid flu- negative HIV 1/2, hepatitis panel - negative Nicotine addiction Nicotine patch 21mg daily Prophylaxis Protonix 40mg PO daily Florastor 250mg PO daily SCD on right foot only. DVT risk score is 1 PT Eval: can ambulate with Crutch. <Josephine Diez Bird - Last Filed: 06/02/17 23:07> Objective - Vital Signs/Intake and Output Vital Signs (last 24 hours): Temp Pulse Resp BP Pulse Ox 98.1 F 76 20 115/79 98 06/02/17 15:57 06/02/17 15:57 06/02/17 15:57 06/02/17 15:57 06/02/17 15:57 - Medications Medications: Current Medications Docusate Sodium (Colace) 100 mg PO BID [facility] Last Admin: 06/02/17 17:42 Dose: 100 mg Ergocalciferol (Drisdol 50,000 Intl Units Cap) 1 cap PO Q7D [facility] Last Admin: 05/31/17 10:38 Dose: 1 cap Telavancin 750 mg/ Sodium (Chloride) 100 mls @ 100 mls/hr IVPB Q24H [facility] Last Admin: 06/02/17 13:10 Dose: 100 mls/hr Ibuprofen (Motrin Tab) 400 mg PO Q6H PRN PRN Reason: Pain, Mild (1-3) Nicotine (Nicoderm Cq) 1 patch TD DAILY [facility] Last Admin: 06/02/17 09:51 Dose: 1 patch Pantoprazole Sodium (Protonix Ec Tab) 40 mg PO DAILY [facility] Last Admin: 06/02/17 09:51 Dose: 40 mg Saccharomyces Boulardii (Florastor) 250 mg PO BID [facility] Last Admin: 06/02/17 17:42 Dose: 250 mg - Labs Labs: 06/02/17 12:09 06/02/17 12:09 PT 13.4 SECONDS (9.7-12.2) H 05/29/17 08:05 INR 1.2 05/29/17 08:05 APTT 33 SECONDS (21-34) 05/29/17 08:05 Attending/Attestation - Attestation I have personally seen and examined this patient.: Yes I have fully participated in the care of the patient.: Yes I have reviewed all pertinent clinical information, including history, physical exam and plan: Yes Notes (Text): Patient seen, examined and case discussed with medical insurance claims specialist on rounds. Patient seen during rounds post operative day 3 from I&D by orthopedic; help appreciated. Patient reports pain is controlled. Patient reports he ambulated today. Patient is afebrile. Patient complaining about left knee (lateral aspect swelling) and concern about more abscess. Will need to follow-up with orthopedic in regards prior to discharge planning Patient's IV abx switched over to Telavncin 750 IV daily for 3 weeks. Patient is setup for the outpatient transfusion center. White count has normalized. Patient has had cultures taken from the OR, which show no growth. Patient is possible discharge for Saturday, June 03, 2017 but please follow-up with orthopedics in regards to left knee lateral swelling. Cellulitis has almost resolved it is now limited to patella and encompassing the "N" in patient 's tattoo. Assessment/plan 1) LLE Cellulitis Left Knee Abscess * ID Dr. Longoria consulted- recs appreciated * Orthopedic, Dr. Pineda on board--help appreciated * on 05/29 went for incision and drainage and irrigation debridement and there was a culture and biopsy of the left leg * OR cultures remain negative * Blood cultures (05/26/17): negative * Wound cx (05/26/17): MRSA * On contact isolation * Urine culture: no growth * Imaging: * Xray L knee: Soft tissue swelling/cellulitis. * L tib/fib: Soft tissue swelling/cellulitis. * Lower Extremity CT: Left calf cellulitis, no abscess * Venous dopplers - negative DVT * MRI official: official report available in the chart Meds: * Start Telavncin 750 IV daily by ID * Patient is setup for outpatient transfusion center for 3 weeks * tylenol 650mg PO q6hrs PRN * HIV 1/2, hepatitis panel - negative 2) Leukocytosis * Likely 2/2 to cellulitis * Normalized * CXR: Mild venous congestion. Right hilar prominence. Rapid flu- negative * HIV 1/2, hepatitis panel - negative 3) Abnormal UA (resolved) * Patient had one bout of dark urine prior to ED today * Admits to not properly hydrating himself- he has only had apple juiceon admission * UA positive for blood, glucose and protein * Urine culture: no growth * ASO - negative * f/u complement levels- c3, c4, ch50 4) Nicotine addiction Nicotine patch 21mg daily 5) Prophylaxis * Protonix 40mg PO daily * Florastor 250mg PO daily * SCD on right foot only. DVT risk score is 1 * NS 75cc/hr * PT eval: Home * Ambulatory Disposition: Patient is setup for outpatient transfusion center for Saturday at 9AM on 06/04/17. Patient is on Telvancin 750mg IV daily for 3 weeks. Please follow-up with orthopedic to lateral left knee swelling it is causing the patient great concern prior to discharge. Please update Dr. Bird Siu at time of discharge (patient has allowed medical information to be shared with him, he is patient's uncle)
[2017-06-02] MEDS: Pantoprazole 40 mg EC Tab PO SCH (09:51)
[2017-06-02] MEDS: Saccharomyces Boulardi 250 mg Cap PO SCH ×2 (09:51→17:42)
[2017-06-02 12:33] LABS: BASO # 0.1 K/uL (0.0-0.2); BASO % 0.8 % (0.0-2.0); EOS # 0.4 K/uL (0.0-0.7); EOS % 3.5 % (0.0-4.0); HEMOGLOBIN 14.3 g/dL (12.0-18.0); LYMPH # 1.4 K/uL (1.0-4.3); LYMPH % 13.7 % (20.0-40.0); MEAN CELL VOLUME 94.7 fL (80.0-94.0); MEAN CORPUSCULAR HEMOGLOBIN 33.6 pg (27.0-31.0); MEAN CORPUSCULAR HGB CONC 35.5 g/dL (33.0-37.0); MEAN PLATELET VOLUME 8.2 fL (7.2-11.7); MONO # 0.8 K/uL (0.0-0.8); MONO % 7.5 % (0.0-10.0); NEUT # 7.6 K/uL (1.8-7.0); NEUT % 74.5 % (50.0-75.0); RBC 4.25 Mil/uL (4.40-5.90); RED CELL DISTRIBUTION WIDTH 12.1 % (11.5-14.5); WHITE BLOOD COUNT 10.2 K/uL (4.8-10.8)
[2017-06-02] MEDS: Telavancin Hydrochloride 750 MG in Sodium Chloride 0.9% 100 ML IVPB SCH (13:10)
[2017-06-02 13:41] LABS: ALBUMIN 3.9 g/dL (3.5-5.0); ALT/SGPT 47 U/L (21-72); AST/SGOT 37 U/L (17-59); BLOOD UREA NITROGEN 10 mg/dL (9-20); CALCIUM 9.6 mg/dl (8.6-10.4); GFR AFRICAN-AMERICAN > 60; GFR NON-AFRICAN AMERICAN > 60; MAGNESIUM 2.2 mg/dL (1.6-2.3)
[2017-06-03] MEDS: Pantoprazole 40 mg EC Tab PO SCH (09:37)
[2017-06-03] MEDS: Saccharomyces Boulardi 250 mg Cap PO SCH ×2 (09:37→17:54)
--- NOTE | 2017-06-03 09:52 | CP.PCM.DIS ---
Addendum entered and electronically signed by Trupti Brody DO 06/04/17 07:28 : Discharged delayed due to new fluctuance noted on moore of left leg, lateral to I &D site. An lower extremity ultrasound was done. Lower Extremity US: There is a large flattened complex collection in the anterior subcutaneous soft tissues extending about both the medial and lateral aspect of the lower extremity. This collection measures approximately 0.7 x 3.7 x 3.0 cm. Heterogeneous low-level internal echoes are seen. There is only mild peripheral hypervascularity, not consistent with an infected collection though an infected collection cannot be excluded solely on the basis of this examination. No solid mass is identified. There is no additional abnormality. Patient was seen by Dr. Pineda: P- d/c restricted weight bearing with crutches I/V abios to continue RTC - next Saturday ortho clinic Patient is now medically and orthopedically cleared. Safe for discharge. Original Note: Provider - Provider Date of Admission: 05/28/17 13:59 Attending physician: Josephine Diez DO Time Spent in preparation of Discharge (in minutes): 55 Hospital Course - Lab Results Lab Results: Micro Results 05/29/17 13:40 Other: Please Indicate Gram Stain - Final 05/29/17 13:40 Other: Please Indicate Tissue Culture - Final No growth. 05/29/17 13:54 Other: Please Indicate Gram Stain - Final 05/29/17 13:54 Other: Please Indicate Tissue Culture - Final No growth. 05/29/17 13:51 Other: Please Indicate Gram Stain - Final 05/29/17 13:51 Other: Please Indicate Tissue Culture - Final No growth. 05/29/17 13:57 Other: Please Indicate Gram Stain - Final 05/29/17 13:57 Other: Please Indicate Tissue Culture - Final No growth. 05/29/17 13:41 Other: Please Indicate Gram Stain - Final 05/29/17 13:41 Other: Please Indicate Tissue Culture - Final No growth. 05/29/17 13:53 Other: Please Indicate Gram Stain - Final 05/29/17 13:53 Other: Please Indicate Tissue Culture - Final No growth. 05/29/17 13:44 Other: Please Indicate Gram Stain - Final 05/29/17 13:44 Other: Please Indicate Tissue Culture - Final No growth. 05/29/17 13:42 Other: Please Indicate Gram Stain - Final 05/29/17 13:42 Other: Please Indicate Tissue Culture - Final No growth. 05/29/17 13:39 Other: Please Indicate Gram Stain - Final 05/29/17 13:39 Other: Please Indicate Tissue Culture - Final No growth. 05/29/17 13:37 Other: Please Indicate Gram Stain - Final 05/29/17 13:37 Other: Please Indicate Tissue Culture - Final No growth. 05/29/17 13:36 Other: Please Indicate Gram Stain - Final 05/29/17 13:36 Other: Please Indicate Tissue Culture - Final No growth. 05/29/17 13:38 Other: Please Indicate Gram Stain - Final 05/29/17 13:38 Other: Please Indicate Tissue Culture - Final No growth. 05/29/17 13:46 Other: Please Indicate Gram Stain - Final 05/29/17 13:46 Other: Please Indicate Tissue Culture - Final No growth. 05/29/17 13:56 Other: Please Indicate Gram Stain - Final 05/29/17 13:56 Other: Please Indicate Tissue Culture - Final No growth. 05/29/17 13:52 Other: Please Indicate Gram Stain - Final 05/29/17 13:52 Other: Please Indicate Tissue Culture - Final No growth. 05/29/17 13:50 Other: Please Indicate Gram Stain - Final 05/29/17 13:50 Other: Please Indicate Tissue Culture - Final No growth. 05/26/17 15:45 Blood Blood Culture - Final NO GROWTH AFTER 5 DAYS 05/26/17 15:45 Blood Gram Stain - Final TEST NOT PERFORMED 05/26/17 16:15 Blood Blood Culture - Final NO GROWTH AFTER 5 DAYS 05/26/17 16:15 Blood Gram Stain - Final TEST NOT PERFORMED 05/29/17 13:00 Leg - Left Gram Stain - Final 05/29/17 13:10 Leg - Left Gram Stain - Final 05/26/17 21:59 Leg - Left Gram Stain - Final 05/26/17 21:59 Leg - Left Wound Culture - Final Methicillin Resistant S Aureus 05/26/17 Unknown Leg - Left Gram Stain - Final 05/26/17 Unknown Leg - Left Wound Culture - Final Methicillin Resistant S Aureus 05/26/17 Unknown Urine Urine Culture - Final No Growth (<1,000 CFU/ML) Most Recent Lab Values WBC 10.2 K/uL (4.8-10.8) 06/02/17 12:09 RBC 4.25 Mil/uL (4.40-5.90) L 06/02/17 12:09 Hgb 14.3 g/dL (12.0-18.0) 06/02/17 12:09 Hct 40.2 % (35.0-51.0) 06/02/17 12:09 MCV 94.7 fL (80.0-94.0) H 06/02/17 12:09 MCH 33.6 pg (27.0-31.0) H 06/02/17 12:09 MCHC 35.5 g/dL (33.0-37.0) 06/02/17 12:09 RDW 12.1 % (11.5-14.5) 06/02/17 12:09 Plt Count 253 K/uL (130-400) 06/02/17 12:09 MPV 8.2 fL (7.2-11.7) 06/02/17 12:09 Neut % (Auto) 74.5 % (50.0-75.0) 06/02/17 12:09 Lymph % (Auto) 13.7 % (20.0-40.0) L 06/02/17 12:09 [place] % (Auto) 7.5 % (0.0-10.0) 06/02/17 12:09 Eos % (Auto) 3.5 % (0.0-4.0) 06/02/17 12:09 Baso % (Auto) 0.8 % (0.0-2.0) 06/02/17 12:09 Neut # (Auto) 7.6 K/uL (1.8-7.0) H 06/02/17 12:09 Lymph # (Auto) 1.4 K/uL (1.0-4.3) 06/02/17 12:09 [place] # (Auto) 0.8 K/uL (0.0-0.8) 06/02/17 12:09 Eos # (Auto) 0.4 K/uL (0.0-0.7) 06/02/17 12:09 Baso # (Auto) 0.1 K/uL (0.0-0.2) 06/02/17 12:09 Neutrophils % (Manual) 87 % (50-75) H 05/27/17 13:58 Lymphocytes % (Manual) 6 % (20-40) L 05/27/17 13:58 Reactive Lymphs % 1 % (0-0) H 05/27/17 13:58 Monocytes % (Manual) 5 % (0-10) 05/27/17 13:58 Eosinophils % (Manual) 1 % (0-4) 05/27/17 13:58 Platelet Estimate Normal (NORMAL) 05/27/17 13:58 RBC Morphology Normal 05/27/17 13:58 ESR 31 mm/hr (0-15) H 05/26/17 15:58 PT 13.4 SECONDS (9.7-12.2) H 05/29/17 08:05 INR 1.2 05/29/17 08:05 APTT 33 SECONDS (21-34) 05/29/17 08:05 pO2 24 mm/Hg (30-55) L 05/26/17 16:00 VBG pH 7.38 (7.32-7.43) 05/26/17 16:00 VBG pCO2 48 mmHg (40-60) 05/26/17 16:00 VBG HCO3 25.4 mmol/L 05/26/17 16:00 VBG Total CO2 29.9 mmol/L (22-28) H 05/26/17 16:00 VBG O2 Sat (Calc) 40.1 % (40-65) 05/26/17 16:00 VBG Base Excess 2.5 mmol/L (0.0-2.0) H 05/26/17 16:00 VBG Potassium 3.8 mmol/L (3.6-5.2) 05/26/17 16:00 Sodium 137.0 mmol/l (132-148) 05/26/17 16:00 Chloride 102.0 mmol/L (98-107) 05/26/17 16:00 Glucose 80 mg/dl (75-110) 05/26/17 16:00 Lactate 1.7 mmol/L (0.7-2.1) 05/26/17 16:00 Sodium 141 mmol/L (132-148) 06/02/17 12:09 Potassium 3.9 mmol/L (3.6-5.2) 06/02/17 12:09 Chloride 102 mmol/L (98-107) 06/02/17 12:09 Carbon Dioxide 28 mmol/L (22-30) 06/02/17 12:09 Anion Gap 16 (10-20) 06/02/17 12:09 BUN 10 mg/dL (9-20) 06/02/17 12:09 Creatinine 0.7 mg/dL (0.8-1.5) L 06/02/17 12:09 Est GFR ( Amer) > 60 06/02/17 12:09 Est GFR (Non-Af Amer) > 60 06/02/17 12:09 Random Glucose 89 mg/dL (75-110) 06/02/17 12:09 Hemoglobin A1c 4.3 % (4.2-6.5) 05/28/17 07:45 Calcium 9.6 mg/dl (8.6-10.4) 06/02/17 12:09 Phosphorus 3.7 mg/dL (2.5-4.5) 06/02/17 12:09 Magnesium 2.2 mg/dL (1.6-2.3) 06/02/17 12:09 Total Bilirubin 0.7 mg/dL (0.2-1.3) 06/02/17 12:09 AST 37 U/L (17-59) 06/02/17 12:09 ALT 47 U/L (21-72) 06/02/17 12:09 Alkaline Phosphatase 55 U/L (38-126) 06/02/17 12:09 C-React Prot High Sens > 15.00 mg/L (1.00-3.00) H 05/26/17 15:58 Total Protein 7.7 g/dL (6.3-8.3) 06/02/17 12:09 Albumin 3.9 g/dL (3.5-5.0) 06/02/17 12:09 Globulin 3.8 gm/dL (2.2-3.9) 06/02/17 12:09 Albumin/Globulin Ratio 1.0 (1.0-2.1) 06/02/17 12:09 25-OH Vitamin D Total < 12.8 NG/ML (30.0-100.0) L 05/31/17 07:12 Venous Blood Potassium 3.8 mmol/L (3.6-5.2) 05/26/17 16:00 Urine Color Georgina (YELLOW) 05/26/17 16:21 Urine Clarity Hazy (Clear) 05/26/17 16:21 Urine pH 5.0 (5.0-8.0) 05/26/17 16:21 Ur Specific [place] 1.019 (1.003-1.030) 05/26/17 16:21 Urine Protein 1+ mg/dL (NEGATIVE) H 05/26/17 16:21 Urine Glucose (UA) 1+ mg/dL (Normal) H 05/26/17 16:21 Urine Ketones Trace mg/dL (NEGATIVE) 05/26/17 16:21 Urine Blood Trace (NEGATIVE) H 05/26/17 16:21 Urine Nitrate Negative (NEGATIVE) 05/26/17 16:21 Urine Bilirubin Negative (NEGATIVE) 05/26/17 16:21 Urine Urobilinogen 4.0 mg/dL (0.2-1.0) 05/26/17 16:21 Ur Leukocyte Esterase Neg Lisa/uL (Negative) 05/26/17 16:21 Urine WBC (Auto) 3 /hpf (0-5) 05/26/17 16:21 Urine RBC (Auto) 3 /hpf (0-3) 05/26/17 16:21 Urine Bacteria Rare (<OCC) 05/26/17 16:21 Hyaline Casts 0-2 /lpf (0-2) 05/26/17 16:21 Vancomycin Trough 11.7 ug/mL (5.0-10.0) H 05/31/17 07:12 Urine Opiates Screen Negative (NEGATIVE) 05/26/17 22:18 Urine Methadone Screen Negative (NEGATIVE) 05/26/17 22:18 Ur Barbiturates Screen Negative (NEGATIVE) 05/26/17 22:18 Ur Phencyclidine Scrn Negative (NEGATIVE) 05/26/17 22:18 Ur Amphetamines Screen Negative (NEGATIVE) 05/26/17 22:18 U Benzodiazepines Scrn Negative (NEGATIVE) 05/26/17 22:18 U Oth Cocaine Metabols Negative (NEGATIVE) 05/26/17 22:18 U Cannabinoids Screen Positive (NEGATIVE) H 05/26/17 22:18 Complement C3 136.0 mg/dL (88.0-165.0) 05/26/17 21:20 Complement C4 45.2 mg/dL (14.0-44.0) H 05/26/17 21:20 Tot Complement (CH50) 26 U/mL (31-60) L 05/26/17 21:20 Hepatitis A IgM Ab Negative (NEGATIVE) 05/26/17 21:20 Hep Bs Antigen Negative (NEGATIVE) 05/26/17 21:20 Hep B Core IgM Ab Negative (NEGATIVE) 05/26/17 21:20 Hepatitis C Antibody Negative (NEGATIVE) 05/26/17 21:20 HIV 1&2 Antibody Screen Negative (NEGATIVE) 05/26/17 21:20 Influenza Typ A,B (EIA) Negative for flu a/b (NEGATIVE) 05/26/17 20:35 Anti-Staphylolysin O Negative (NEGATIVE) 05/26/17 21:20 - Hospital Course Hospital Course: Upon Admission: CC: Left leg pain, swelling, and open wounds HPI: A 27 year old male presents to the ED with left leg pain and swelling after getting a tattoo in [place] (written "[place]") on the leg 2 weeks ago. The tattoo is on the medial aspect of the LLE between the knee and ankle. He states that he cleaned the tattoo with soap and water, as well as Neosporin. The patient states that he started to notice the leg pain along with 3 open wounds developing about 10-11 days ago. The patient states that he "popped" the wounds himself and discovered purulent drainage coming out. He states that he started to develop fevers and chill about 2 days ago and the pain began to radiate from his left leg to his left knee. The pain is worse with weight bearing and movement and gets better with rest. On ROS, the patient admits to fevers and chills (2 days ago), hematuria, leg pain and leg swelling, and lightheadedness. He denies headaches, vision/hearing changes, sore throat, dizziness, chest pain, palpitations, SOB, cough, abdominal pain, N/V/D/C, rash, and weight changes. PMD: Dr. Welch in [place] Allergies: Denies PMHx: Denies PSHx: Left Arm Brachial Plexus surgery (occurred at ) FamHx: Mother has DM2 SocHx: 12 pack years, drinks EtOH socially, smokes marijuana every other day, last joint was 4 days ago. Home Medications: Advil 2 tab q7h for the past 2 days Throughout Hospital Course: LLE Cellulitis Left Knee Abscess * ID Dr. Longoria consulted- recs appreciated * Orthopedic, Dr. Pineda on board--help appreciated * on 05/29 went for incision and drainage and irrigation debridement and there was a culture and biopsy of the left leg * OR cultures remain negative * Blood cultures (05/26/17): negative * Wound cx (05/26/17): MRSA * On contact isolation * Urine culture: no growth * Imaging: * Xray L knee: Soft tissue swelling/cellulitis. * L tib/fib: Soft tissue swelling/cellulitis. * Lower Extremity CT: Left calf cellulitis, no abscess * Venous dopplers - negative DVT * MRI official: official report available in the chart Meds: * Start Telavncin 750 IV daily by ID * Patient is setup for outpatient transfusion center for 3 weeks * tylenol 650mg PO q6hrs PRN * HIV 1/2, hepatitis panel - negative Leukocytosis - RESOLVED * Likely 2/2 to cellulitis * Normalized * CXR: Mild venous congestion. Right hilar prominence. Rapid flu- negative * HIV 1/2, hepatitis panel - negative Abnormal UA (resolved) * Patient had one bout of dark urine prior to ED today * Admits to not properly hydrating himself- he has only had apple juiceon admission * UA positive for blood, glucose and protein * Urine culture: no growth * ASO - negative * f/u complement levels- c3, c4, ch50 Nicotine addiction Nicotine patch 21mg daily Patient is setup for outpatient transfusion center for Saturday at 9AM on June 01. Patient is on Telvancin 750mg IV daily for 3 weeks. Please follow-up with orthopedic to lateral left knee swelling it is causing the patient great concern prior to discharge. Discharge Exam - Additional Findings Additional findings: - Constitutional Appears: No Acute Distress - Head Exam Head Exam: NORMAL INSPECTION, NORMOCEPHALIC - Eye Exam Eye Exam: EOMI, Normal appearance, PERRL Pupil Exam: NORMAL ACCOMODATION - ENT Exam ENT Exam: Mucous Membranes Moist - Respiratory Exam Respiratory Exam: Clear to Ausculation Bilateral, NORMAL BREATHING PATTERN. absent: Decreased Breath Sounds, Wheezes - Cardiovascular Exam Cardiovascular Exam: REGULAR RHYTHM, RRR - GI/Abdominal Exam GI & Abdominal Exam: Soft, Normal Bowel Sounds. absent: Distended, Tenderness - Extremities Exam Extremities Exam: Normal Inspection. absent: Pedal Edema, Tenderness Additional comments: dressing c/d/i/ - Neurological Exam Neurological Exam: Alert, Awake, Oriented x3 - Psychiatric Exam Psychiatric exam: Normal Affect, Normal Mood - Skin Skin Exam: Dry, Intact, Normal Color, Warm Discharge Plan - Follow Up Plan Condition: STABLE Disposition: HOME/ ROUTINE Instructions: Abscess (GEN), Cellulitis (DC), Cellulitis (GEN) Additional Instructions: Please take over the counter probiotics since you will be on IV Antibiotics for a long course. Take daily 2 hours before you get IV antibiotics take for total 2 months. Please follow up with Ortho, Dr. Pineda within 1 week to check up on your knee. If you do not have a primary care physician - please establish yourself in the clinic that we have downstairs for follow up and routine care. Please return to the ED if you start to develop fever, chills, increase redness , swelling, around your left knee, or leg. Referrals: Abhay Pineda III, MD [Staff Provider] - [facility] [Outside]
[2017-06-03] MEDS: Telavancin Hydrochloride 750 MG in Sodium Chloride 0.9% 100 ML IVPB SCH (14:01)
--- NOTE | 2017-06-03 15:16 | US ---
PROCEDURE: Ultrasound examination left lower extremity HISTORY: evaluate fluctuance on left moore COMPARISON: MRI of left lower extremity 05/28/2017 TECHNIQUE: Ultrasound examination was performed in the left lower extremity, just below the knee, utilizing a high-frequency linear array transducer. FINDINGS: There is a large flattened complex collection in the anterior subcutaneous soft tissues extending about both the medial and lateral aspect of the lower extremity. This collection measures approximately 0.7 x 3.7 x 3.0 cm. Heterogeneous low-level internal echoes are seen. There is only mild peripheral hypervascularity, not consistent with an infected collection though an infected collection cannot be excluded solely on the basis of this examination. No solid mass is identified. There is no additional abnormality. IMPRESSION: Complex collection in the left lower extremity below the knee, possibly hematoma. This does not demonstrate significant peripheral hypervascularity and is less likely an abscess. Consider correlation with percutaneous aspiration if clinically warranted.
--- NOTE | 2017-06-03 19:28 | CP.PCM.PN ---
Subjective - Date & Time of Evaluation Date of Evaluation: 06/03/17 Time of Evaluation: 07:05 - Subjective Subjective: S- pt comfortable; markedly improved ptr extrmemly pleased with improvement; his greatest concern is the tranbsmission of infection to roommate( he is told to discuss this with DR Diez) Objective - Vital Signs/Intake and Output Vital Signs (last 24 hours): Temp Pulse Resp BP Pulse Ox 98.4 F 72 20 112/74 97 06/03/17 16:40 06/03/17 16:40 06/03/17 16:40 06/03/17 16:40 06/03/17 16:40 - Medications Medications: Current Medications Docusate Sodium (Colace) 100 mg PO BID [facility] Last Admin: 06/03/17 17:54 Dose: 100 mg Ergocalciferol (Drisdol 50,000 Intl Units Cap) 1 cap PO Q7D [facility] Last Admin: 05/31/17 10:38 Dose: 1 cap Telavancin 750 mg/ Sodium (Chloride) 100 mls @ 100 mls/hr IVPB Q24H [facility] Last Admin: 06/03/17 14:01 Dose: 100 mls/hr Ibuprofen (Motrin Tab) 400 mg PO Q6H PRN PRN Reason: Pain, Mild (1-3) Last Admin: 06/02/17 23:55 Dose: 400 mg Nicotine (Nicoderm Cq) 1 patch TD DAILY [facility] Last Admin: 06/03/17 09:38 Dose: 1 patch Pantoprazole Sodium (Protonix Ec Tab) 40 mg PO DAILY [facility] Last Admin: 06/03/17 09:37 Dose: 40 mg Saccharomyces Boulardii (Florastor) 250 mg PO BID [facility] Last Admin: 06/03/17 17:54 Dose: 250 mg - Labs Labs: 06/02/17 12:09 06/02/17 12:09 PT 13.4 SECONDS (9.7-12.2) H 05/29/17 08:05 INR 1.2 05/29/17 08:05 APTT 33 SECONDS (21-34) 05/29/17 08:05 - ENT Exam Additional comments: Objective pt has remained consisitently afebrile no active drainage wound bening- no drainage cellulitis improved Assessment and Plan - Assessment and Plan (Free Text) Assessment: A- s/p I+D L calf abscess/no joint communication orthopedically stable P- d/c restricted weight bearing with crutches I/V abios to continue RTC - next Saturday ortho clinic
[2017-06-04 00:20] VITALS: O2SAT 98
[2017-06-04 07:52] VITALS: BP 119/75; PULSE 70; RESP 18; TEMP 92.2
[2017-06-04] MEDS: Pantoprazole 40 mg EC Tab PO SCH (10:05)
[2017-06-04] MEDS: Saccharomyces Boulardi 250 mg Cap PO SCH (10:06)
[2017-06-04] MEDS: Telavancin Hydrochloride 750 MG in Sodium Chloride 0.9% 100 ML IVPB SCH (13:43)
--- NOTE | 2017-06-05 23:23 | OP ---
PROCEDURE DATE: 05/30/2017 PREOPERATIVE DIAGNOSIS: Abscess proximal medial tibia, left. POSTOPERATIVE DIAGNOSIS: Abscess proximal medial tibia, left. No communication with the knee joint. PROCEDURES: Incision and drainage, thorough irrigation and debridement, culture and biopsy, application of compression dressing and knee immobilizer. SURGEON: Abhay Pak MD KARDEX CLERK: Bobby Vaughn PA-C SECOND TOP INVENTORY CONTROL EXECUTIVE: ELIZABETH Garcia, Certified registered nursing radiology physician assistant. TYPE OF ANESTHESIA: General endotracheal anesthesia. COMPLICATIONS: None. DRAINS: None. OPERATIVE INDICATION: The patient is a 27-year-old gentleman who had undergone a tattoo approximately three weeks ago. There is a suspicion of substance abuse with evidence of pinpricks in other part of the lower extremity in the area of the thigh, which raised the possible specter of substance abuse. The story the patient gives is that he had a tattoo approximately three weeks ago and noted increasing pain and swelling in the proximal medial tibia. There are no other areas in the calf. There is evidence of a fullness in the proximal medial tibia and some erythema. The patient had been admitted and evaluated and was started on IV antibiotics. The patient was treated by Dr. Tsai, the Infectious Disease doctor and was seen by PHU Vaughn under my supervision. Pros, cons, risks and benefits of surgical approach were discussed with the patient, the possibility of spread of the abscess elsewhere was discussed, possibility of later joint involvement was discussed, and possibility of later osteomyelitis was discussed. Again, the question of subcutaneous or intravenous substance abuse was discussed with this patient. Pros, cons, risks, and benefits were discussed. The patient is demanding the surgical procedure. OPERATIVE PROCEDURE: After having obtained informed consent and after having identified side, site, and procedure and a critical pause/time-out, the patient had been admitted with cellulitis of the left lower extremity and an abscess in the proximal medial tibia had developed approximately 3 to 4 fingerbreadths distal to the joint line. Again, informed consent had been obtained. The tourniquet had been applied, but was not inflated. An incision was described after sterilely prepping and draping, after having obtained informed consent, and after having identified side, site, and procedure and a critical pause/time out, the patient identified as Kamran Hickman, left lower extremity was prepped and free draped in the usual fashion for extremity surgery. The fluctuant area was identified and incision approximately 3 inches in length was accomplished. The incision was carried down to the skin and subcutaneous tissue. There was evidence of purulence. This was expressed, and ellipse of skin was removed, the skin and subcutaneous tissue. A thorough debridement was accomplished. The wound was carefully explored without probing deeply. There was found to be no joint communication. The wound was thoroughly irrigated with 6 liters of antibiotic-impregnated saline. This having been accomplished after thorough irrigation and debridement, the wound was thoroughly irrigated. The wound edges had been debrided and ellipse of skin had been removed. Thorough irrigation and debridement had been accomplished. The wound was thoroughly irrigated and closed in layers with interrupted Vicryl and nylon. Presley Andrew compression dressing was applied. Again, the area was inspected. There were no other gross areas of involvement. The patient was told that he will require approximately six weeks of intravenous antibiotics. The patient was transferred from the operating room table to stretcher having tolerated the procedure well. Abhay Pineda MD
== END 2017-06-04 15:02 | disposition home or self-care (01) | DRG 581 ==
LOC: C.ER 14:03 → C.9E 17:24 → C.5S 05-27 16:51 → OBSVTOIN 05-28 13:59
PROVIDERS: ADMIT Hospitalist; ATTEND Hospitalist
PROC: 0JDP0ZZ Extraction of Left Lower Leg Subcutaneous Tissue and Fascia, Open Approach (ICD-10-PCS; principal; 2017-05-30)
PROC: 0J9P0ZX Drainage of Left Lower Leg Subcutaneous Tissue and Fascia, Open Approach, Diagnostic (ICD-10-PCS; 2017-05-30)
DX: L03.116 Cellulitis of left lower limb (principal); B95.62 Methicillin resistant Staphylococcus aureus infection as the cause of diseases classified elsewhere; F17.210 Nicotine dependence, cigarettes, uncomplicated; L81.8 Other specified disorders of pigmentation

== ENCOUNTER 2017-06-08 00:28 | Emergency (ER) | payer OTHER, SELFPAY ==
[2017-06-08 00:29] VITALS: BMI 28.8
[2017-06-08 00:45] VITALS: TEMP 97.7
--- NOTE | 2017-06-08 01:07 | C.PDOC ---
History Of Present Illness Pt had an I&D for an abscess left medial leg( s/p tatoo). Pt has a PICC line and receives daily antibiotics Time Seen by Provider: 06/08/17 01:06 Chief Complaint (Nursing): Abnormal Skin Integrity History Per: Patient History/Exam Limitations: no limitations Onset/Duration Of Symptoms: Days Current Symptoms Are (Timing): Still Present Location Of Injury: Left: Leg Quality Of Symptoms: Swollen. denies: Draining Severity: Moderate Pain Scale Rating Of: 4 Recent travel outside of the [place]: No Additional History Per: Patient Past Medical History Reviewed: Historical Data, Nursing Documentation, Vital Signs Vital Signs: Last Vital Signs Temp 97.7 F 06/08/17 03:42 Pulse 65 06/08/17 03:42 Resp 17 06/08/17 03:42 BP 115/77 06/08/17 03:42 Pulse Ox 100 06/08/17 03:42 - Medical History PMH: Denies: Deep Vein Thrombosis, Chronic Kidney Disease Surgical History: Denies: Pacemaker - [facility] Procedures DRAINAGE OF L LOW LEG SUBCU/FASCIA, OPEN APPROACH, DIAGN (05/28/17) EXTRACTION OF L LOW LEG SUBCU/FASCIA, OPEN APPROACH (05/28/17) Family History: States: No Known Family Hx - Social History Hx Alcohol Use: Yes Hx Substance Use: Yes - Immunization History Hx Tetanus Toxoid Vaccination: No Hx Influenza Vaccination: No Hx Pneumococcal Vaccination: No Review Of Systems Constitutional: Positive for: Fever, Chills Cardiovascular: Negative for: Chest Pain Respiratory: Negative for: Shortness of Breath Gastrointestinal: Negative for: Abdominal Pain Musculoskeletal: Positive for: Leg Pain Skin: Positive for: Rash, Lesions Neurological: Negative for: Weakness Psych: Negative for: Anxiety Physical Exam - Physical Exam Appears: Non-toxic Skin: Warm, Other (erythema ,surgical incision ) Oral Mucosa: Moist Respiratory: No Rales, No Rhonchi, No Wheezing Gastrointestinal/Abdominal: Soft, No Tenderness, No Distention Extremity: Swelling (left leg), Other (8 cm incision, some sutures in place) Pulses: Left Dorsalis Pedis: Normal, Right Dorsalis Pedis: Normal Neurological/Psych: Oriented x3, Normal Speech, Normal Cognition Gait: Steady ED Course And Treatment - Laboratory Results Result Diagrams: 06/08/17 01:44 06/08/17 01:44 O2 Sat by Pulse Oximetry: 99 Pulse Ox Interpretation: Normal Reevaluation Time: 04:45 Reassessment Condition: Improved Disposition Counseled Patient/Family Regarding: Studies Performed, Diagnosis, Need For Followup - Disposition Disposition: HOME/ ROUTINE Disposition Time: 01:07 Condition: FAIR Additional Instructions: Please return if increased redness, foul smelling discharge, high fever and chills Instructions: Wound Care (DC) Forms: [employer] (German) - Clinical Impression Clinical Impression: Wound check, abscess
[2017-06-08] MEDS ORDERED: Sodium Chloride 0.9% 1,000 ML IV ONE (01:13)
[2017-06-08 01:38] LABS: BASO # 0.1 K/uL (0.0-0.2); EOS # 0.4 K/uL (0.0-0.7); NEUT # 7.6 K/uL (1.8-7.0)
[2017-06-08 01:50] LABS: VENOUS BLOOD GAS BASE EXCESS 3.7 mmol/L (0.0-2.0); VENOUS BLOOD GAS PCO2 43 mmHg (40-60); VENOUS BLOOD GAS PO2 38 mm/Hg (30-55); VENOUS BLOOD PH 7.43 (7.32-7.43)
[2017-06-08 02:07] LABS: BASO % 0.8 % (0.0-2.0); EOS % 3.3 % (0.0-4.0); HEMOGLOBIN 13.4 g/dL (12.0-18.0); LYMPH % 17.6 % (20.0-40.0); MEAN CELL VOLUME 93.4 fL (80.0-94.0); MEAN CORPUSCULAR HEMOGLOBIN 33.7 pg (27.0-31.0); MEAN CORPUSCULAR HGB CONC 36.1 g/dL (33.0-37.0); MEAN PLATELET VOLUME 8.8 fL (7.2-11.7); MONO # 1.1 K/uL (0.0-0.8); MONO % 10.3 % (0.0-10.0); RBC 3.98 Mil/uL (4.40-5.90); RED CELL DISTRIBUTION WIDTH 12.1 % (11.5-14.5); WHITE BLOOD COUNT 11.1 K/uL (4.8-10.8)
[2017-06-08 02:12] LABS: BLOOD UREA NITROGEN 14 mg/dL (9-20); CALCIUM 8.7 mg/dl (8.6-10.4); GFR AFRICAN-AMERICAN > 60; GFR NON-AFRICAN AMERICAN > 60
[2017-06-08] MEDS ORDERED: Sodium Chloride 0.9% 1,000 ML ONE (02:35)
[2017-06-08 03:44] VITALS: BP 115/77; PULSE 65; RESP 17
[2017-06-08 04:48] VITALS: O2SAT 99
== END 2017-06-08 05:03 | disposition home or self-care (01) ==
LOC: C.ER 00:28
DX: Z51.89 Encounter for other specified aftercare (principal); L02.91 Cutaneous abscess, unspecified
CPT/HCPCS: 80048; 82803; 83735; 85025; 87040; 96360; 99285; J7040

== ENCOUNTER 2017-07-09 16:25 | Emergency (ER) | payer OTHER, SELFPAY ==
[2017-07-09 16:42] VITALS: BMI 27.3
[2017-07-09 16:46] VITALS: RESP 18
[2017-07-09] MEDS ORDERED: Naproxen 550 mg Tab PO STA (18:06)
[2017-07-09] MEDS ORDERED: Naproxen 550 mg Tab PO ONE (18:36)
--- NOTE | 2017-07-09 18:51 | RAD ---
HISTORY: Right PICC. Chest pain after infusion? COMPARISON: 05/30/2017 TECHNIQUE: Chest PA and lateral FINDINGS: LUNGS: No active pulmonary disease. PLEURA: No significant pleural effusion identified. No pneumothorax apparent. CARDIOVASCULAR: No radiographic findings to suggest acute or significant cardiovascular disease. PICC line in satisfactory position OSSEOUS STRUCTURES: No significant abnormalities. VISUALIZED UPPER ABDOMEN: Normal. OTHER FINDINGS: None. IMPRESSION: No active disease.
[2017-07-09 18:57] VITALS: BP 131/77; PULSE 64; TEMP 99; O2SAT 98
--- NOTE | 2017-07-09 19:22 | C.PDOC ---
History Of Present Illness Pt states that after receiving the IV antibiotic infusion through his right PICC line, he developed some chest pain that is better now. Time Seen by Provider: 07/09/17 17:50 Chief Complaint (Nursing): Chest Pain History Per: Patient Onset/Duration Of Symptoms: Hrs (today) Current Symptoms Are (Timing): Better Severity: Moderate Quality: "Pain" Associated Symptoms: denies: Nausea, Dyspnea, Diaphoresis, Syncope Modifying Factors: None Exacerbating Factors: None Additional History Per: Prior Records Past Medical History Reviewed: Historical Data, Nursing Documentation, Vital Signs Vital Signs: Last Vital Signs Temp 99 F 07/09/17 18:56 Pulse 64 07/09/17 18:56 Resp 18 07/09/17 18:56 BP 131/77 07/09/17 18:56 Pulse Ox 98 07/09/17 18:56 - Medical History Other PMH: Infected wound on left leg (for which he receives IV antibiotics daily.) Surgical History: Denies: Pacemaker - [facility] Procedures DRAINAGE OF L LOW LEG SUBCU/FASCIA, OPEN APPROACH, DIAGN (05/28/17) EXTRACTION OF L LOW LEG SUBCU/FASCIA, OPEN APPROACH (05/28/17) Family History: States: Unknown Family Hx - Social History Hx Tobacco Use: No Hx Alcohol Use: Yes Hx Substance Use: No - Immunization History Hx Tetanus Toxoid Vaccination: No Hx Influenza Vaccination: No Hx Pneumococcal Vaccination: No Review Of Systems Except As Marked, All Systems Reviewed And Found Negative. Constitutional: Negative for: Fever Cardiovascular: Positive for: Chest Pain Respiratory: Negative for: Cough, Shortness of Breath Gastrointestinal: Negative for: Vomiting, Abdominal Pain Musculoskeletal: Negative for: Neck Pain, Back Pain Skin: Negative for: Rash Neurological: Negative for: Weakness, Numbness Physical Exam - Physical Exam Appears: Non-toxic, No Acute Distress Skin: Normal Color, Warm, Dry, No Rash Head: Atraumatic, Normacephalic Eye(s): bilateral: PERRL, EOMI Neck: Normal ROM, Supple Chest: Symmetrical, No Deformity Cardiovascular: Rhythm Regular Respiratory: Normal Breath Sounds, No Accessory Muscle Use Gastrointestinal/Abdominal: Soft, No Tenderness Back: No CVA Tenderness Extremity: Normal ROM, No Calf Tenderness, Other (Right arm PICC line with no tenderness or erythema. ) Neurological/Psych: Oriented x3, Normal Motor, Normal Sensation ED Course And Treatment ECG: Interpreted By Me, Viewed By Me ECG Rhythm: Sinus Rhythm ECG Interpretation: No Acute Changes Rate From EC O2 Sat by Pulse Oximetry: 98 Pulse Ox Interpretation: Normal - Radiology CXR: Viewed By Me, Read By Radiologist CXR Interpretation: Yes: No Acute Disease Progress Note: Chest pain resolved. Reassessment Condition: Improved Disposition Counseled Patient/Family Regarding: Studies Performed, Diagnosis, Need For Followup - Disposition Referrals: Willem Weiss MD [Staff Provider] - Disposition: HOME/ ROUTINE Disposition Time: 19:26 Condition: IMPROVED Additional Instructions: Follow up with your doctor. Return to the ER if you develop shortness of breath , worsening of symptoms or if you have any other concerns. Instructions: Chest Pain That Is Not Caused by the Heart (DC) - Clinical Impression Clinical Impression: Non-cardiac chest pain
--- NOTE | 2017-07-10 20:48 | CARD ---
APPROVED REPORT EKG Measurement Heart [id number] CT 130P4 [id number] <Conclusion> Normal sinus rhythm Normal ECG
== END 2017-07-09 19:35 | disposition home or self-care (01) ==
LOC: C.ER 16:25
DX: R07.89 Other chest pain (principal)

== ENCOUNTER 2017-09-07 21:39 | Emergency (ER) | payer SELFPAY ==
[2017-09-07 21:39] VITALS: BMI 27.3
[2017-09-07 22:03] VITALS: BP 123/77; PULSE 69; RESP 18; TEMP 98.7; O2SAT 96
[2017-09-07] MEDS ORDERED: Bacitracin 500 Units/gm Oint Foilpak UD ONE ×2 (22:40→22:53)
--- NOTE | 2017-09-07 23:13 | C.PDOC ---
History Of Present Illness Pt had left leg infection due to a tattoo. Pt was treated and his left leg was taken out from what sounds like an Sera boot 2 days ago. Pt states that he feels that his leg is itchy, so he scratches it at night without noticing. Time Seen by Provider: 09/07/17 22:26 Chief Complaint (Nursing): Wound Check History Per: Patient Onset/Duration Of Symptoms: Days Ago Current Symptoms Are (Timing): Better Location Of Injury: Left: Leg Quality Of Symptoms: Itching, Swollen (mild). denies: Draining Severity: Moderate Additional History Per: Prior Records Past Medical History Reviewed: Historical Data, Nursing Documentation, Vital Signs Vital Signs: Last Vital Signs Temp 98.7 F 09/07/17 22:00 Pulse 69 09/07/17 22:00 Resp 18 09/07/17 22:00 BP 123/77 09/07/17 22:00 Pulse Ox 96 09/07/17 22:00 - Medical History PMH: No Chronic Diseases - [facility] Procedures DRAINAGE OF L LOW LEG SUBCU/FASCIA, OPEN APPROACH, DIAGN (05/28/17) EXTRACTION OF L LOW LEG SUBCU/FASCIA, OPEN APPROACH (05/28/17) Family History: States: Unknown Family Hx - Social History Hx Tobacco Use: No Hx Alcohol Use: Yes Hx Substance Use: Yes (MARIJUANA) - Immunization History Hx Tetanus Toxoid Vaccination: No Hx Influenza Vaccination: No Hx Pneumococcal Vaccination: No Review Of Systems Except As Marked, All Systems Reviewed And Found Negative. Constitutional: Negative for: Fever, Weakness Cardiovascular: Negative for: Chest Pain Respiratory: Negative for: Shortness of Breath, Hemoptysis Gastrointestinal: Negative for: Vomiting, Abdominal Pain Musculoskeletal: Negative for: Neck Pain, Back Pain Neurological: Negative for: Weakness, Numbness Physical Exam - Physical Exam Appears: Non-toxic, No Acute Distress Skin: Normal Color, Warm, Dry Head: Atraumatic, Normacephalic Eye(s): bilateral: Normal Inspection, PERRL, EOMI Neck: Normal ROM, Supple Extremity: Normal ROM, No Calf Tenderness, No Deformity, Other (some excoriations on left leg. Old wound looks healed. No induration, erythema or discharge. ) Extremity: Bilateral: Normal Color And Temperature Pulses: Left Dorsalis Pedis: Normal Neurological/Psych: Oriented x3, Normal Motor, Normal Sensation ED Course And Treatment O2 Sat by Pulse Oximetry: 96 Pulse Ox Interpretation: Normal Reassessment Condition: Improved Disposition Counseled Patient/Family Regarding: Diagnosis, Need For Followup, Rx Given - Disposition Disposition: HOME/ ROUTINE Disposition Time: 23:14 Condition: STABLE Additional Instructions: Keep wound clean and dressed. Follow up with your doctor. Return to the ER if you develop fever, redness, discharge, worsening of symptoms or if you have any other concerns. Prescriptions: Mupirocin 2% Ointment [Bactroban Ointment] 1 appl TP BID #1 tube Forms: General Discharge Instructions - Clinical Impression Clinical Impression: Visit for wound check
== END 2017-09-07 23:35 | disposition home or self-care (01) ==
LOC: C.ER 21:39
DX: Z48.00 Encounter for change or removal of nonsurgical wound dressing (principal)